=== PATIENT | male | born 1970 | race Caucasian/White ===

== ENCOUNTER 2020-03-25 17:26 | Outpatient (CLI) | payer OTHER, SELFPAY ==
--- NOTE | ~2020-03-25 | XR_ITS ---
EXAMINATION: XR foot RT 2V DATE: 03/25/2020 18:03 INDICATION: Right foot pain and swelling and erythema at the great toe TECHNIQUE: Dorsoplantar and lateral views of the right foot were obtained. COMPARISON: None. FINDINGS: Mild hallux valgus. Alignment is otherwise normal. No fracture. Minimal osteoarthritis at the first m etatarsophalangeal and a few interphalangeal joints. No cortical erosions or periosteal reaction. Sma ll Achilles calcaneal spur. Diffuse mild soft tissue swelling in the forefoot. IMPRESSION: 1. Minimal degenerative skeletal changes. No acute osseous abnormality. Reviewed, dictated and finalized at location A.
[2020-03-25 17:46] LABS: Hematocrit 42.5 % (40.0-54.0); Hemoglobin 14.9 g/dL (14.0-18.0); Mean Corpuscular Volume 86.7 fL (78.0-102.0); White Blood Count 6.9 K/mm3 (4.8-10.8)
[2020-03-25 17:47] LABS: Basophils Absolute Auto 0.04 K/mm3 (0.00-0.10); Basophils Percent Auto 0.6 % (0.0-1.0); Eosinophils Absolute Auto 0.25 K/mm3 (0.02-0.50); Eosinophils Percent Auto 3.6 % (1.0-6.0); Immature Granulocyte Absolute 0.02 K/mm3 (0.00-0.00); Immature Granulocyte Percent A 0.3 % (0.0-0.0); Lymphocytes Absolute Auto 1.69 K/mm3 (1.10-4.50); Lymphocytes Percent Auto 24.4 % (18.0-42.0); Mean Corpuscular HGB Conc 35.1 g/dL (32.0-36.0); Mean Corpuscular Hemoglobin 30.4 pg (27.0-31.0); Mean Platelet Volume 9.6 fl (8.7-11.0); Monocytes Percent Auto 5.8 % (2.0-11.0); Neutrophils Absolute Auto 4.5 K/mm3 (1.7-7.2); Neutrophils Percent Auto 65.3 % (50.0-70.0); Platelet Count Result 207 K/mm3 (150-420); Red Cell Distribution Width 12.8 % (11.6-14.4)
[2020-03-25 19:55] LABS: Alanine Aminotransferase 25 U/L (16-63); Albumin Level 3.9 g/dL (3.4-5.0); Alkaline Phosphatase 87 U/L (46-116); Anion Gap 12.1 mmol/L (7-16); Aspartate Amino Transferase 15 U/L (15-37); Bilirubin,Total 0.5 mg/dL (0.00-1.00); Blood Urea Nitrogen 18 mg/dL (7-18); Calcium 8.5 mg/dL (8.5-10.1); Carbon Dioxide 28 mmol/L (21-32); Chloride 104 mmol/L (98-108); Estimated Glomerular Filt Rate > 60; Glucose 93 mg/dL (70-99); Osmolality Calculated 291 mOsm/kg (285-295); Potassium 4.1 mmol/L (3.5-5.1); Sodium 140 mmol/L (136-145); Total Protein 6.6 g/dL (6.4-8.2); Uric Acid 7.6 mg/dL (3.5-7.2)
== END 2020-03-25 17:27 | disposition home or self-care (01) ==
LOC: CHSLAB 17:30
PROVIDERS: PCP Family Medicine; Visit Provider Family Medicine
DX: M79.676 Pain in unspecified toe(s) (principal); M10.9 Gout, unspecified
CPT/HCPCS: 36415; 73620; 80053; 84550; 85025

== ENCOUNTER 2020-04-01 15:46 | Outpatient (CLI) | payer OTHER, SELFPAY ==
[2020-04-01 16:49] LABS: Uric Acid 4.6 mg/dL (3.5-7.2)
== END 2020-04-01 15:47 | disposition home or self-care (01) ==
PROVIDERS: PCP Family Medicine; Visit Provider Family Medicine
DX: M10.9 Gout, unspecified (principal)
CPT/HCPCS: 36415; 84550

== ENCOUNTER 2020-05-01 07:21 | Outpatient (CLI) | payer OTHER, SELFPAY ==
[2020-05-01 07:35] LABS: Basophils Absolute Auto 0.04 K/mm3 (0.00-0.10); Basophils Percent Auto 0.8 % (0.0-1.0); Eosinophils Absolute Auto 0.14 K/mm3 (0.02-0.50); Eosinophils Percent Auto 2.6 % (1.0-6.0); Hematocrit 44.9 % (40.0-54.0); Hemoglobin 15.2 g/dL (14.0-18.0); Lymphocytes Absolute Auto 1.63 K/mm3 (1.10-4.50); Lymphocytes Percent Auto 30.7 % (18.0-42.0); Mean Corpuscular HGB Conc 33.9 g/dL (32.0-36.0); Mean Corpuscular Hemoglobin 29.9 pg (27.0-31.0); Mean Corpuscular Volume 88.2 fL (78.0-102.0); Mean Platelet Volume 9.7 fl (8.7-11.0); Monocytes Percent Auto 5.6 % (2.0-11.0); Neutrophils Absolute Auto 3.2 K/mm3 (1.7-7.2); Neutrophils Percent Auto 60.3 % (50.0-70.0); Platelet Count Result 165 K/mm3 (150-420); Red Blood Count 5.09 M/mm3 (4.70-6.10); White Blood Count 5.3 K/mm3 (4.8-10.8)
[2020-05-01 08:59] LABS: Alanine Aminotransferase 28 U/L (16-63); Albumin Level 3.8 g/dL (3.4-5.0); Alkaline Phosphatase 82 U/L (46-116); Anion Gap 10.8 mmol/L (7-16); Aspartate Amino Transferase 17 U/L (15-37); Bilirubin,Total 0.7 mg/dL (0.00-1.00); Blood Urea Nitrogen 17 mg/dL (7-18); Calcium 8.9 mg/dL (8.5-10.1); Carbon Dioxide 32 mmol/L (21-32); Chloride 104 mmol/L (98-108); Cholesterol 223 mg/dL (0-200); Estimated Glomerular Filt Rate > 60; Ferritin 55 ng/mL (26-388); Glucose 91 mg/dL (70-99); HDL Direct 60 mg/dL (40-60); Iron 84 ug/dL (65-175); LDL Cholesterol Calculated 150 mg/dL (<130); Osmolality Calculated 297 mOsm/kg (285-295); Percent Iron Saturation 26 % (12-57); Potassium 3.8 mmol/L (3.5-5.1); Sodium 143 mmol/L (136-145); Total Protein 6.5 g/dL (6.4-8.2); Triglycerides 65 mg/dL (0-150); Uric Acid 7.3 mg/dL (3.5-7.2); Vitamin B12 305 pg/mL (193-986)
[2020-05-01 09:01] LABS: Thyroid Stimulating Hormone Reflex 3.39 u/IU/mL (0.36-3.74)
[2020-05-05 19:25] LABS: Vitamin D 25 Hydroxy 16 ng/mL (30-100)
== END 2020-05-01 07:22 | disposition home or self-care (01) ==
LOC: CHSLAB 07:24
PROVIDERS: PCP Family Medicine; Visit Provider Family Medicine
DX: Z00.00 Encounter for general adult medical examination without abnormal findings (principal); Z98.84 Bariatric surgery status; M10.9 Gout, unspecified; E66.01 Morbid (severe) obesity due to excess calories
CPT/HCPCS: 36415; 80053; 80061; 82306; 82607; 82728; 82746; 83540; 83550; 84443; 84550; 85025

== ENCOUNTER 2020-11-04 17:31 | Outpatient (CLI) | payer OTHER, SELFPAY ==
[2020-11-04 17:48] LABS: Basophils Absolute Auto 0.05 K/mm3 (0.00-0.10); Basophils Percent Auto 0.7 % (0.0-1.0); Eosinophils Absolute Auto 0.15 K/mm3 (0.02-0.50); Eosinophils Percent Auto 2.1 % (1.0-6.0); Hemoglobin 17.1 g/dL (14.0-18.0); Immature Granulocyte Absolute 0.02 K/mm3 (0.00-0.00); Immature Granulocyte Percent A 0.3 % (0.0-0.0); Lymphocytes Absolute Auto 1.31 K/mm3 (1.10-4.50); Lymphocytes Percent Auto 17.9 % (18.0-42.0); Mean Corpuscular HGB Conc 35.6 g/dL (32.0-36.0); Mean Corpuscular Hemoglobin 31.7 pg (27.0-31.0); Mean Corpuscular Volume 88.9 fL (78.0-102.0); Mean Platelet Volume 10.3 fl (8.7-11.0); Monocytes Absolute Auto 0.42 K/mm3 (0.10-0.90); Monocytes Percent Auto 5.8 % (2.0-11.0); Neutrophils Absolute Auto 5.4 K/mm3 (1.7-7.2); Neutrophils Percent Auto 73.2 % (50.0-70.0); Platelet Count Result 183 K/mm3 (150-420); Red Cell Distribution Width 13.6 % (11.6-14.4); White Blood Count 7.3 K/mm3 (4.8-10.8)
[2020-11-04 19:06] LABS: Alanine Aminotransferase 47 U/L (16-63); Albumin Level 4.5 g/dL (3.4-5.0); Alkaline Phosphatase 96 U/L (46-116); Anion Gap 12 mmol/L (8-16); Aspartate Amino Transferase 28 U/L (15-37); Bilirubin,Total 0.7 mg/dL (0.00-1.00); Blood Urea Nitrogen 22 mg/dL (7-18); Calcium 9.2 mg/dL (8.5-10.1); Carbon Dioxide 25 mmol/L (21-32); Chloride 102 mmol/L (98-108); Cholesterol 290 mg/dL (0-200); Estimated Glomerular Filt Rate > 60; Ferritin 110 ng/mL (26-388); Folic Acid 7.9 ng/mL (8.6->20); Glucose 85 mg/dL (70-99); HDL Direct 70 mg/dL (40-60); Iron 81 ug/dL (65-175); LDL Cholesterol Calculated 203 mg/dL (<130); Osmolality Calculated 290 mOsm/kg (285-295); Percent Iron Saturation 24 % (12-57); Potassium 4.2 mmol/L (3.5-5.1); Sodium 139 mmol/L (136-145); Total Protein 7.3 g/dL (6.4-8.2); Triglycerides 84 mg/dL (0-150); Uric Acid 5.7 mg/dL (3.5-7.2); Vitamin B12 413 pg/mL (193-986)
[2020-11-04 19:08] LABS: Thyroid Stimulating Hormone Reflex 3.35 u/IU/mL (0.36-3.74)
[2020-11-11 02:45] LABS: Vitamin D 25 Hydroxy 34 ng/mL (30-100)
== END 2020-11-04 17:32 | disposition home or self-care (01) ==
LOC: CHSLAB 17:34
PROVIDERS: PCP Family Medicine; Visit Provider Family Medicine
DX: E55.9 Vitamin D deficiency, unspecified (principal); Z98.84 Bariatric surgery status; M25.50 Pain in unspecified joint; M10.9 Gout, unspecified; R03.0 Elevated blood-pressure reading, without diagnosis of hypertension; E66.01 Morbid (severe) obesity due to excess calories
CPT/HCPCS: 36415; 80053; 80061; 82306; 82607; 82728; 82746; 83540; 83550; 84443; 84550; 85025

== ENCOUNTER 2021-10-27 07:36 | Outpatient (CLI) | payer OTHER, SELFPAY ==
[2021-10-27 07:54] LABS: Hematocrit 47.2 % (40.0-54.0); Hemoglobin 16.6 g/dL (14.0-18.0); Mean Corpuscular HGB Conc 35.2 g/dL (32.0-36.0); Mean Corpuscular Hemoglobin 31.7 pg (27.0-31.0); Mean Corpuscular Volume 90.2 fL (78.0-102.0); Mean Platelet Volume 9.8 fl (8.7-11.0); Platelet Count Result 175 K/mm3 (150-420); Red Blood Count 5.23 M/mm3 (4.70-6.10); White Blood Count 7.6 K/mm3 (4.8-10.8)
[2021-10-27 08:06] LABS: Hemoglobin A1C 5.3 % (<5.7)
[2021-10-27 09:14] LABS: Alanine Aminotransferase 25 U/L (16-63); Alkaline Phosphatase 92 U/L (46-116); Anion Gap 15 mmol/L (8-16); Aspartate Amino Transferase 13 U/L (15-37); Bilirubin,Total 0.7 mg/dL (0.00-1.00); Blood Urea Nitrogen 16 mg/dL (7-18); Calcium 8.6 mg/dL (8.5-10.1); Carbon Dioxide 27 mmol/L (21-32); Chloride 104 mmol/L (98-108); Cholesterol 200 mg/dL (0-200); Estimated Glomerular Filt Rate > 60; Folic Acid 12.6 ng/mL (8.6->20); Glucose 94 mg/dL (70-99); HDL Direct 70 mg/dL (40-60); LDL Cholesterol Calculated 120 mg/dL (<130); Osmolality Calculated 303 mOsm/kg (285-295); Potassium 4.2 mmol/L (3.5-5.1); Sodium 146 mmol/L (136-145); Total Protein 6.6 g/dL (6.4-8.2); Triglycerides 48 mg/dL (0-150); Vitamin B12 290 pg/mL (193-986)
[2021-10-31 02:20] LABS: Vitamin D 25 Hydroxy 28 ng/mL (30-100)
[2021-11-01 19:06] LABS: Vitamin A 47 mcg/dL (38-98)
== END 2021-10-27 07:37 | disposition home or self-care (01) ==
LOC: CHSLAB 07:42
PROVIDERS: PCP Family Medicine; Visit Provider Family Medicine
DX: Z98.84 Bariatric surgery status (principal); E11.9 Type 2 diabetes mellitus without complications; E53.8 Deficiency of other specified B group vitamins
CPT/HCPCS: 36415; 80053; 80061; 82306; 82607; 82746; 83036; 84443; 84590; 85027

== ENCOUNTER 2022-02-20 14:16 | Outpatient (CLI) | payer OTHER, SELFPAY ==
--- NOTE | ~2022-02-20 | XR_ITS ---
EXAMINATION: XR shoulder RT min 2V DATE: 02/20/2022 14:36 INDICATION: Right shoulder pain. TECHNIQUE: 4 views of right shoulder were obtained. COMPARISON: None. FINDINGS: Bone alignment is normal. No fracture. There is mild osteoarthritis of glenohumeral joint a nd moderate osteoarthritis of acromioclavicular joint. IMPRESSION: 1. Polyarticular osteoarthritis. Reviewed, dictated and finalized at location D.
== END 2022-02-20 14:17 | disposition home or self-care (01) ==
PROVIDERS: PCP Family Medicine; Visit Provider Nurse Practitioner Family
DX: M25.511 Pain in right shoulder (principal)
CPT/HCPCS: 73030

== ENCOUNTER 2022-04-11 15:55 | Outpatient (RCR) | payer OTHER, SELFPAY ==
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
== END 2022-05-04 16:58 | disposition home or self-care (01) ==
LOC: CHSPT 15:55
PROVIDERS: PCP Family Medicine; Visit Provider Family Medicine
DX: S46.019A Strain of muscle(s) and tendon(s) of the rotator cuff of unspecified shoulder, initial encounter (principal)
CPT/HCPCS: 97014; 97110; 97140; 97161; G0283

== ENCOUNTER → 2022-05-16 14:23 | Outpatient (CLI) | payer OTHER, SELFPAY ==
--- NOTE | ~2022-05-16 | MR_ITS ---
EXAMINATION: MR shoulder RT wo con DATE: 05/16/2022 15:04 INDICATION: Rotator cuff tear presenting with right shoulder pain and popping TECHNIQUE: Magnetic resonance imaging (MRI) of the right shoulder was performed without intravenous c ontrast. Sequences included axial PD-weighted FS FSE, coronal oblique PD-weighted FS FSE, coronal obl ique T2-weighted FS FSE, sagittal PD-weighted FS FSE, and sagittal T1-weighted SE. COMPARISON: None. FINDINGS: Coracoacromial arch: The acromion undersurface is curved in morphology (type II). The coracoacromial ligament is normal. M ild acromioclavicular osteoarthritis. Rotator cuff: Mild supraspinatus tendinopathy without discrete tear. Moderate infraspinatus tendinopathy with small mild intrasubstance tear located approximately 1 cm from the middle facet footplate. The tear measur es approximately 3 mm AP measures 1 cm medial to lateral and involves no greater than one third of th e tendon thickness. The teres minor tendon is normal. Mild subscapularis tendinopathy. Small partial- thickness tear involving the superolateral quadrant of the lesser tuberosity footplate of the subscap ularis tendon. Normal rotator cuff muscle bulk and signal. Biceps tendon, glenoid labrum and glenohumeral cartilage: Diffuse wall thickening and mild increased signal consistent with mild tendinopathy without discrete tear at the junction of the intra and extra articular portions of the long head biceps tendon. At thi s location the tendon is partially subluxed across the medial margin of the cephalad aspect of the in tertubercular groove at the site of the lesser tuberosity subscapularis tendon tear defect. Glenoid l abrum is normal. Partial-thickness cartilage loss with smooth chondral surface along the cephalad thi rd of the glenoid. Humeral head cartilage is normal. Fluid: Minimal right glenohumeral joint effusion with minimally increased fluid at the axillary recess and d eep subscapular recess. Disproportionate small amount of fluid and mild synovitis along the long head biceps tendon sheath consistent with mild bicipital tenosynovitis. No loose osteochondral bodies. No abnormal increased fluid in the subacromial/subdeltoid bursa to suggest bursitis. Bones: Normal marrow signal with no edema, fracture or abnormal marrow replacing process. Prominent intraoss eous cystic change underlying the central aspect of the middle facet of the greater tuberosity likely related to the infraspinatus tendon disease. IMPRESSION: 1. Moderate infraspinatus tendinopathy with very small mild partial-thickness intrasubstance tear. 2. Mild subscapularis tendinopathy with partial tear involving the superolateral lesser tuberosity fo otplate resulting in partial subluxation of the long head biceps tendon across the cephalad aspect of the medial rim of the intertubercular groove and across the subscapularis tendon tear defect. 3. Mild bicipital tenosynovitis with mild tendinopathy without discrete tear. 4. Mild right glenohumeral and acromioclavicular osteoarthritis. Reviewed, dictated and finalized at location A. IMPRESSION: 1. Moderate infraspinatus tendinopathy with very small mild partial-thickness i ntrasubstance tear. 2. Mild subscapularis tendinopathy with partial tear involving the superolatera l lesser tuberosity footplate resulting in partial subluxation of the long head biceps tendon across the cephalad aspect of the medial rim of the intertubercu lar groove and across the subscapularis tendon tear defect. 3. Mild bicipital tenosynovitis with mild tendinopathy without discrete tear. 4. Mild right glenohumeral and acromioclavicular osteoarthritis.
== END ==
PROVIDERS: PCP Family Medicine; Visit Provider Family Medicine
DX: M75.101 Unspecified rotator cuff tear or rupture of right shoulder, not specified as traumatic (principal); M19.011 Primary osteoarthritis, right shoulder; M65.811 Other synovitis and tenosynovitis, right shoulder
CPT/HCPCS: 73221

== ENCOUNTER 2022-06-07 16:41 | Outpatient (RCR) | payer OTHER, SELFPAY ==
--- NOTE | 2022-06-07 17:12 | PTOPEVAL ---
Thank you for referring Farzad Bruno to [facility].? The patient is scheduled to be seen for therapy? __2__x/week for 12 visits. Please review, sign, date and return this plan of care ALPESH. I agree with and certify that the following plan of care is medically necessary. Referring Physician Date Admitting Provider: Attending Provider: AMANDA MURILLO Referring Provider: *PT Outpatient Evaluation Start: 06/07/22 16:40 Freq: Status: Active Protocol: Document 06/07/22 16:40 RONI (Rec: 06/07/22 17:12 RONI [id number]) Therapy Assessment Status Assessment Status Assessment Status Evaluation Evaluation Information Problem Diagnosis subluxation of tendon of long head of biceps right Onset 02/11/22 Subjective Information Pt. reports that he has had Query Text:As Reported By Patient/ shoulder pain since January. He Family underwent recent cortisone injection which did reduce his pain. He states that he still has pain with overhead reaching and reaching behind his back. He had an MRI which revealed a tear in the rotator cuff and biceps. 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 He reports that his goal is to improve shoulder mobility and decrease pain. Pain Assessment Timing of Pain Assessment Timing of Pain Assessment Pre-Treatment Pain Scale Pain Scale Used Numeric (1 - 10) Self Report Pain Assessment Right Shoulder(s) Reported Pain Level 1 Greatest Pain Intensity 3 Pain Score Pain Score 1: Self Report Interventions Used Interventions Used By Clinicians Electrical Stimulation, Exercise,Heat,Manual Therapy Techniques General Exercise General Exercises Exercise Description -bilateral shoulder retraciton Query Text:Record Sets, Reps, -bilateral shoulder extension Resistance, and Position -bilateral shoulder ER -pec stretch -static scapular retraction Manual Therapy Manual Therapy Side Right Treatment Comments inferior, posterior and Query Text:Include Technique and anterior mobilization combined Result of Technique with passive stretching to promote improved ROM Modalities Electrical Stimulation Right Shoulder Stimulation Type
--- NOTE | 2022-06-07 17:55 | PTOPEVAL ---
Thank you for referring Farzad Bruno to [facility].? The patient is scheduled to be seen for therapy? __2__x/week for 12 visits. Please review, sign, date and return this plan of care ALPESH. I agree with and certify that the following plan of care is medically necessary. Referring Physician Date Admitting Provider: Attending Provider: AMANDA MURILLO Referring Provider: *PT Outpatient Evaluation Start: 06/07/22 16:40 Freq: Status: Active Protocol: Document 06/07/22 16:40 RONI (Rec: 06/07/22 17:12 [email or web address] [email or web address]) Therapy Assessment Status Assessment Status Assessment Status Evaluation Evaluation Information Problem Diagnosis subluxation of tendon of long head of biceps right Onset 02/11/22 Subjective Information Pt. reports that he has had Query Text:As Reported By Patient/ shoulder pain since January. He Family underwent recent cortisone injection which did reduce his pain. He states that he still has pain with overhead reaching and reaching behind his back. He had an MRI which revealed a tear in the rotator cuff and biceps. 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 He reports that his goal is to improve shoulder mobility and decrease pain. Pain Assessment Timing of Pain Assessment Timing of Pain Assessment Pre-Treatment Pain Scale Pain Scale Used Numeric (1 - 10) Self Report Pain Assessment Right Shoulder(s) Reported Pain Level 1 Greatest Pain Intensity 3 Pain Score Pain Score 1: Self Report Interventions Used Interventions Used By Clinicians Electrical Stimulation, Exercise,Heat,Manual Therapy Techniques Upper Extremity Range of Motion General Upper Extremity Range of Motion Gross Upper Extremity Range of Motion -Pt. reaches to the right PSIS Comments with the right u.e. and the lower thoracic region with the left u.e. with combined shoulder IR extension. -right shoulder flexion 155 degrees -left shoulder flexion 165 degrees Upper Extremity Muscle Strength Testing General Upper Extremity Strength Gross Upper Extremity Strength Comments -right shoulder flexion 4/5
== END 2022-07-17 18:00 | disposition home or self-care (01) ==
LOC: CHSPT 16:41
PROVIDERS: PCP Family Medicine
DX: S46.119A Strain of muscle, fascia and tendon of long head of biceps, unspecified arm, initial encounter (principal)
CPT/HCPCS: 97014; 97110; 97140; 97161; G0283

== ENCOUNTER 2022-07-25 10:23 | Outpatient (CLI) | payer OTHER, SELFPAY ==
--- NOTE | ~2022-07-25 | XR_ITS ---
XR knee RT 3V 07/25/2022 10:59 Indication: Right knee pain Procedure: 4 views right knee Comparison: No prior studies for comparison. Findings: No fracture, subluxation or dislocation. No joint effusion. No foreign bodies. There is singh tomic alignment. Impression: 1: No significant bone or joint abnormality. Reviewed, dictated and finalized at location A. Impression: 1: No significant bone or joint abnormality.
== END 2022-07-25 10:24 | disposition home or self-care (01) ==
LOC: CHSIMG 10:25
PROVIDERS: PCP Family Medicine; Visit Provider Family Medicine
DX: M25.561 Pain in right knee (principal)
CPT/HCPCS: 73562

== ENCOUNTER 2022-09-22 07:00 | Outpatient (RCR) | payer OTHER, SELFPAY ==
--- NOTE | 2022-09-21 15:27 | PTOPEVAL1 ---
Assessment and note entered by JT File, PT Evaluation Information Assessment Status Evaluation Diagnosis s/p R shoulder arthroscopy Onset 09/05/22 Subjective Information patient reports he tore his RTC of the R shoulder on 02/11/22. he reports the RTC had several small tears in it, and the biceps long head tendon was torn and displaced. he reports he tried therapy on the R shoulder for conservative treatment, but ultimately settled on having surgery on the R arm after an injury after surgery. he reports he had a clean out of the inflamation of the RTC and a surgical tenodesis of the R biceps long head. he reports he is to wean out of the R arm sling by . he has no ROM restrictions, but has no strengthening currently per the post op precautions. he reports he continues to have limited mobility in the shoulder with pain at the joint. Reported Pain Level Pain Score 2: Self Report Assessment PT Clinical Summary mr. fang presents to skilled PT services for evaluation and treatment following R arthroscopic and mini open shoulder surgery. he is currently limited to no strengthening exercises, but is able to wean from shoulder sling, and work on return to full rom. he would do well to attend skilled PT to improve his objective/functional deficits and return to his prior level functional activity performance/quality of life. Plan of Care Interventions Electrical Stimulation,Hot Pack/Cold Pack,Manual Therapy,Neuro Re-education,Patient/Caregiver Educati,Therapeutic Activities,Therapeutic Exercise PT Services Indicated Yes Treatment Frequency and 2x weekly for 12 visits Duration These treatments will address the objective and functional deficits as defined above. The patient will be advanced safely and appropriately in order for the patient to progress towards his/her prior level of function. Additional exercises will be introduced and as well as a comprehensive home exercise program upon discharge, if needed, ?to ensure carryover of functional gains achieved in the clinic. This treatment plan has been reviewed and agreement upon by the patient.
[2022-10-19 07:05] VITALS: BP_SYST 110
--- NOTE | 2022-10-19 08:26 | PTOPPROG ---
Assessment and note entered by Jackelin Webb, PT Evaluation Information Assessment Status Progress Diagnosis s/p R shoulder arthroscopy Onset 09/05/22 Subjective Information Farzad reports his right shoulder is doing well overall but he still notes pain with lifting his right arm overhead and when he is carrying something at his side. He notes the pain is only 4 /10 at highest. He does feel weakness in his right arm. Assessment PT Clinical Summary Farzad Bruno is 6 weeks s/p right shoulder arthroscopy and open biceps tenodesis. He is reporting less pain and improved mobility in the right shoulder but he still has pain with lifting his right arm overhead and carrying items at his side. He has not started strengthening for the right shoulder and feels like his arm is weak. He objectively demonstrates improved right shoulder active and passive ROM. He continues to have deficits in right shoulder AROM, posture, and right shoulder strength. He will continue to benefit from skilled PT to progress to strengthening, further improve AROM, and improve functional abilities. Plan of Care Interventions Electrical Stimulation,Hot Pack/Cold Pack,Manual Therapy,Patient/Caregiver Educati,Therapeutic Activities,Therapeutic Exercise PT Services Indicated Yes Treatment Frequency and 2 times a week for 12 visits Duration These treatments will address the objective and functional deficits as defined above. The patient will be advanced safely and appropriately in order for the patient to progress towards his/her prior level of function. Additional exercises will be introduced and as well as a comprehensive home exercise program upon discharge, if needed, ?to ensure carryover of functional gains achieved in the clinic. This treatment plan has been reviewed and agreement upon by the patient.
--- NOTE | 2022-12-06 07:52 | PTOPDC ---
Assessment and note entered by JT File, PT Evaluation Information Assessment Status Discharge Diagnosis s/p R shoulder arthroscopy Onset 09/05/22 Subjective Information patient reports he feels Good this date. he reports no pain at rest, and minimal pain at worst in the last week. he reports he has been doing low doorway stretches and light exercises at home. Reported Pain Level Pain Score 0: Self Report Assessment PT Clinical Summary mr. fang has made progress towards all goals, and met goals for functional R UE use, R elbow strength, and passive shoulder flexion. as of this date, he would do well to DC skilled PT and continue with HEP at home. he was given and updated HEP to continue to improve his strength and rom of the R UE. Plan of Care Treatment Frequency and DC to independent HEP Duration
== END 2022-12-06 09:10 | disposition home or self-care (01) ==
LOC: CHSPT 07:00
DX: S46.011D Strain of muscle(s) and tendon(s) of the rotator cuff of right shoulder, subsequent encounter (principal)
CPT/HCPCS: 97014; 97110; 97140; 97161; G0283

== ENCOUNTER 2022-11-03 14:44 | Outpatient (CLI) | payer OTHER, SELFPAY ==
[2022-11-03 15:01] LABS: Hematocrit 43.7 % (40.0-54.0); Hemoglobin 15.3 g/dL (14.0-18.0); Mean Corpuscular Hemoglobin 31.4 pg (27.0-31.0); Mean Corpuscular Volume 89.7 fL (78.0-102.0); Mean Platelet Volume 9.9 fl (8.7-11.0); Platelet Count Result 196 K/mm3 (150-420); Red Blood Count 4.87 M/mm3 (4.70-6.10); Red Cell Distribution Width 13.2 % (11.6-14.4); White Blood Count 8.8 K/mm3 (4.8-10.8)
[2022-11-03 16:00] LABS: Alanine Aminotransferase 25 U/L (16-63); Alkaline Phosphatase 107 U/L (46-116); Anion Gap 7 mmol/L (8-16); Aspartate Amino Transferase 14 U/L (15-37); Bilirubin,Total 0.5 mg/dL (0.00-1.00); Blood Urea Nitrogen 25 mg/dL (7-18); Calcium 8.1 mg/dL (8.5-10.1); Carbon Dioxide 28 mmol/L (21-32); Chloride 103 mmol/L (98-108); Cholesterol 145 mg/dL (0-200); Estimated Glomerular Filt Rate > 60; Folic Acid > 20.0 ng/mL (8.6->20); Glucose 163 mg/dL (70-99); HDL Direct 46 mg/dL (40-60); LDL Cholesterol Calculated 80 mg/dL (<130); Osmolality Calculated 294 mOsm/kg (285-295); Potassium 3.7 mmol/L (3.5-5.1); Sodium 138 mmol/L (136-145); Thyroid Stimulating Hormone 1.33 uIU/mL (0.36-3.74); Total Protein 6.5 g/dL (6.4-8.2); Triglycerides 96 mg/dL (0-150); Vitamin B12 429 pg/mL (193-986)
[2022-11-07 09:24] LABS: Vitamin D 25 Hydroxy 41 ng/mL (30-100)
[2022-11-08 12:56] LABS: Vitamin A 45 mcg/dL (38-98)
== END 2022-11-03 14:45 | disposition home or self-care (01) ==
LOC: CHSLAB 14:45
PROVIDERS: PCP Family Medicine; Visit Provider Family Medicine
DX: R79.89 Other specified abnormal findings of blood chemistry (principal); E78.5 Hyperlipidemia, unspecified; Z98.84 Bariatric surgery status
CPT/HCPCS: 36415; 80053; 80061; 82306; 82607; 82746; 84443; 84590; 85027

== ENCOUNTER 2023-09-09 09:17 | Emergency (ER) | payer OTHER, SELFPAY ==
--- NOTE | 2023-09-09 09:24 | ED.URI ---
HPI - URI/Sore Throat General Chief Complaint: Upper Respiratory Infection Stated Complaint: Coughing/throat/headache Time Seen by Provider: 09/09/23 09:54 Source: patient and RN notes reviewed Mode of arrival: ambulatory Limitations: no limitations History of Present Illness HPI Narrative: 52-year-old male presents with concern for 4 day history of sore throat, cough, nasal drainage. Reports clear drainage. Denies fever, aches, chills, sweats. Reports he is using a nasal decongestant tablet which helps his symptoms. MD elicited complaint: cough and sore throat Related Data Home Medications Medication Instructions Recorded Confirmed cholecalciferol (vitamin D3) 100 5,000 unit PO DAILY 11/04/20 09/09/23 mcg (4,000 unit) capsule vitamin B complex (B 1 tablet PO DAILY 02/20/22 09/09/23 Complex-Vitamin B12 tablet) melatonin 10 mg tablet 30 mg PO QHS 07/25/22 09/09/23 Allergies Allergy/AdvReac Type Severity Reaction Status Date / Time Penicillins Allergy Intermediate Unknown Verified 09/09/23 09:47 amoxicillin Allergy Unknown Verified 09/09/23 09:47 Review of Systems Review of Systems: CONSTITUTIONAL: Denies malaise, chills, sweats, or fever. EYES: Denies visual changes, redness, or discharge. ENT: Reports rhinorrhea, congestion, and sore throat. CARDIOVASCULAR: Denies chest pain, palpitations, or edema. RESPIRATORY: Reports cough. Denies dyspnea. GASTROINTESTINAL: Denies abdominal pain, nausea, vomiting, diarrhea SKIN: Denies rash or itching. MUSCULOSKELETAL: Denies myalgia. NEUROLOGIC: Denies headache. All systems reviewed & are unremarkable except as noted in HPI and below PMFSH Past Medical History Medical History Gout Hyperlipidemia Low vitamin D level Morbid obesity with body mass index (BMI) of 40.0 to 49.9 Right knee pain Surgical History Surgical History Bariatric surgery status H/O gastric bypass History of bariatric surgery Family History Family History Mother Family history of diabetes mellitus in first degree relative Family history of lung disease Family history of heart disease in male family member before age 55 Father Family history of lung disease Family history of heart disease in male family member before age 55 Other Diabetes mellitus Family history of allergic disorder Social History Social History Smoking status: Never smoker Alcohol intake: current Comments At time of signature, agree with nursing past medical, surgical, social and family history. There is no relevant family history pertinent to the presenting complaint Exam Narrative: GENERAL: Well-appearing, well-nourished, and in no acute distress. HEAD: Normocephalic EYES: PERRLA, conjunctivae clear ENT: Nares clear, turbinates edematous and erythematous, clear discharge. Mucous membranes moist. TM pearly gannon with sharp light reflex bilaterally; no tragal tenderness. Oropharynx not erythematous without lesions. Tonsils not enlarged and without exudate, no drooling, no hoarseness, no trismus, uvula midline. NECK: Supple. No lymphadenopathy CHEST: Clear to auscultation, breath sounds equal. No wheezing, rhonchi, rales, or stridor. No respiratory distress, speaks in full sentences. HEART: Regular rate and rhythm. No murmur heard. SKIN: Warm, dry, no rash. NEURO: Alert and oriented x3. PSYCH: Normal mood and affect Course Course Emergency Course: Patient is aware of diagnosis, understands and agrees to treatment plan. Anticipatory guidance given. Patient agrees to follow-up as directed and is aware of reasons to seek care at the emergency department. Portions of this record may have been created with voice recognition software Level of Care: Express Care Visit Vital Signs Vital sig
[2023-09-09 09:32] VITALS: BP 137/96; PULSE 96; RESP 20; TEMP 36.8; O2SAT 96
[2023-09-09 09:48] VITALS: BP 137/96; PULSE 96; RESP 20; TEMP 36.8; O2SAT 96
== END 2023-09-09 10:26 | disposition home or self-care (01) ==
PROVIDERS: Emergency Provider Nurse Practitioner; PCP Family Medicine
DX: J01.90 Acute sinusitis, unspecified (principal); Z20.822 Contact with and (suspected) exposure to COVID-19; M10.9 Gout, unspecified; E78.5 Hyperlipidemia, unspecified; E66.01 Morbid (severe) obesity due to excess calories; Z68.41 Body mass index [BMI] 40.0-44.9, adult; E55.9 Vitamin D deficiency, unspecified; Z98.84 Bariatric surgery status
CPT/HCPCS: 87081; 87426; 87804; 87880; 99213; C9803; G0463

== ENCOUNTER 2023-10-19 15:33 | Emergency (ER) | payer OTHER, SELFPAY ==
[2023-10-19 15:43] VITALS: BP 146/100; PULSE 98; RESP 16; TEMP 37.3; O2SAT 98
--- NOTE | 2023-10-19 16:20 | ED.URI ---
HPI - URI/Sore Throat General Chief Complaint: Upper Respiratory Infection Stated Complaint: sinus issues Time Seen by Provider: 10/19/23 16:21 Source: patient and RN notes reviewed Mode of arrival: ambulatory Limitations: no limitations History of Present Illness HPI Narrative: 52-year-old male presents with concern for 2 day history of sinus pressure. Reports this started to be painful today. Reports on the left side. He reports clear drainage. He reports trying Sudafed and nasal spray without relief. He denies fever, body aches, chills, sweats. MD elicited complaint: nasal congestion Related Data Home Medications Medication Instructions Recorded Confirmed cholecalciferol (vitamin D3) 100 5,000 unit PO DAILY 11/04/20 09/09/23 mcg (4,000 unit) capsule vitamin B complex (B 1 tablet PO DAILY 02/20/22 09/09/23 Complex-Vitamin B12 tablet) melatonin 10 mg tablet 30 mg PO QHS 07/25/22 09/09/23 Allergies Allergy/AdvReac Type Severity Reaction Status Date / Time Penicillins Allergy Intermediate Unknown Verified 09/09/23 09:47 amoxicillin Allergy Unknown Verified 09/09/23 09:47 Review of Systems Review of Systems: CONSTITUTIONAL: Denies malaise, chills, sweats, or fever. EYES: Denies visual changes, redness, or discharge. ENT: Reports rhinorrhea, congestion, sinus pain, ear fullness CARDIOVASCULAR: Denies chest pain, palpitations, or edema. RESPIRATORY: Reports cough. Denies dyspnea. GASTROINTESTINAL: Denies abdominal pain, nausea, vomiting, diarrhea SKIN: Denies rash or itching. MUSCULOSKELETAL: Denies myalgia. NEUROLOGIC: Denies headache. All systems reviewed & are unremarkable except as noted in HPI and below PMFSH Past Medical History Medical History Gout Hyperlipidemia Low vitamin D level Morbid obesity with body mass index (BMI) of 40.0 to 49.9 Right knee pain Surgical History Surgical History Bariatric surgery status H/O gastric bypass History of bariatric surgery Family History Family History Mother Family history of diabetes mellitus in first degree relative Family history of lung disease Family history of heart disease in male family member before age 55 Father Family history of lung disease Family history of heart disease in male family member before age 55 Other Diabetes mellitus Family history of allergic disorder Social History Social History Smoking status: Never smoker Alcohol intake: current Comments At time of signature, agree with nursing past medical, surgical, social and family history. There is no relevant family history pertinent to the presenting complaint Exam Narrative: GENERAL: Well-appearing, well-nourished, and in no acute distress. HEAD: Normocephalic EYES: PERRLA, conjunctivae clear ENT: Nares clear, turbinates edematous and erythematous, clear discharge. Mucous membranes moist. TM pearly gannon with dull light reflex bilaterally; no tragal tenderness. Oropharynx not erythematous without lesions. Tonsils not enlarged and without exudate, no drooling, no hoarseness, no trismus, uvula midline. NECK: Supple. No lymphadenopathy CHEST: Clear to auscultation, breath sounds equal. No wheezing, rhonchi, rales, or stridor. No respiratory distress, speaks in full sentences. HEART: Regular rate and rhythm. No murmur heard. SKIN: Warm, dry, no rash. NEURO: Alert and oriented x3. PSYCH: Normal mood and affect Course Course Emergency Course: Patient is aware of diagnosis, understands and agrees to treatment plan. Anticipatory guidance given. Patient agrees to follow-up as directed and is aware of reasons to seek care at the emergency department. Portions of this record may have been created with voice recognition software Level of Care: Expre
== END 2023-10-19 16:38 | disposition home or self-care (01) ==
PROVIDERS: Emergency Provider Nurse Practitioner; PCP Family Medicine
DX: J06.9 Acute upper respiratory infection, unspecified (principal); M10.9 Gout, unspecified; E78.5 Hyperlipidemia, unspecified; E66.01 Morbid (severe) obesity due to excess calories; Z68.41 Body mass index [BMI] 40.0-44.9, adult; Z98.84 Bariatric surgery status; E55.9 Vitamin D deficiency, unspecified
CPT/HCPCS: 99213; G0463

== ENCOUNTER 2023-10-25 07:36 | Outpatient (CLI) | payer OTHER, SELFPAY ==
[2023-10-25 07:58] LABS: Hematocrit 47.5 % (40.0-54.0); Hemoglobin 16.2 g/dL (14.0-18.0); Mean Corpuscular HGB Conc 34.1 g/dL (32.0-36.0); Mean Corpuscular Hemoglobin 30.6 pg (27.0-31.0); Mean Corpuscular Volume 89.8 fL (78.0-102.0); Mean Platelet Volume 9.2 fl (8.7-11.0); Platelet Count Result 215 K/mm3 (150-420); Red Blood Count 5.29 M/mm3 (4.70-6.10); Red Cell Distribution Width 12.8 % (11.6-14.4); White Blood Count 8.7 K/mm3 (4.8-10.8)
[2023-10-25 09:15] LABS: Alanine Aminotransferase 40 U/L (16-63); Alkaline Phosphatase 85 U/L (46-116); Anion Gap 7 mmol/L (8-16); Aspartate Amino Transferase 17 U/L (15-37); Bilirubin,Total 0.6 mg/dL (0.00-1.00); Blood Urea Nitrogen 24 mg/dL (7-18); Calcium 9.2 mg/dL (8.5-10.1); Carbon Dioxide 34 mmol/L (21-32); Chloride 101 mmol/L (98-108); Cholesterol 201 mg/dL (0-200); Estimated Glomerular Filt Rate > 60; Folic Acid 18.8 ng/mL (8.6->20); Glucose 97 mg/dL (70-99); HDL Direct 72 mg/dL (40-60); LDL Cholesterol Calculated 116 mg/dL (<130); Osmolality Calculated 298 mOsm/kg (285-295); Sodium 142 mmol/L (136-145); Thyroid Stimulating Hormone 2.85 uIU/mL (0.36-3.74); Total Protein 6.8 g/dL (6.4-8.2); Triglycerides 64 mg/dL (0-150); Vitamin B12 332 pg/mL (193-986)
[2023-10-28 16:10] LABS: Vitamin D 25 Hydroxy 35 ng/mL (30-100)
[2023-10-30 03:01] LABS: Vitamin A 57 mcg/dL (38-98)
== END 2023-10-25 07:37 | disposition home or self-care (01) ==
LOC: CHSLAB 07:39
PROVIDERS: PCP Family Medicine; Visit Provider Family Medicine
DX: E78.5 Hyperlipidemia, unspecified (principal); Z98.84 Bariatric surgery status
CPT/HCPCS: 36415; 80053; 80061; 82306; 82607; 82746; 84443; 84590; 85027

== ENCOUNTER 2023-11-10 09:43 | Outpatient (CLI) | payer OTHER, SELFPAY ==
--- NOTE | ~2023-11-10 | MR_ITS ---
EXAMINATION: MR brain IAC wo/w con DATE: 11/10/2023 11:35 INDICATION: Chronic right ear tinnitus TECHNIQUE: Magnetic resonance imaging (MRI) of the brain and brainstem was performed without and with 20 mL Multihance intravenous contrast. Sequences included sagittal and axial T1-weighted FSE, axial diffusion-weighted FS EPI, axial T2*-weighted GRE, axial T2-weighted FLAIR, axial T2-weighted, axial MPRAGE, small qyiyy-nm-czen coronal FIESTA, small mhtcw-ur-exdm coronal T1-weighted FSE, and small fi eld-of-view axial T1-weighted SPGR. Postcontrast sequences included axial T1-weighted FSE, small fiel d-of-view coronal T1-weighted FSE, and axial MPRAGE. Apparent diffusion coefficient (ADC) maps were c reated. COMPARISON: None. FINDINGS: There are no areas of restricted diffusion to suggest acute infarction. No intracranial hemorrhage or abnormal intracranial mass lesion. There are couple small foci of nonspecific increased T2-weighted signal intensity in the left frontal and right parieto-occipital cerebral white matter which is withi n normal limits for age and likely sequela of chronic small vessel ischemic disease. There are no int raparenchymal signal abnormalities seen on the other pulse sequences. The ventricles are symmetric an d normal in size. There are no abnormal extra-axial fluid collections. Flow voids are seen in the cer ebral arteries on the T2-weighted sequences consistent with their expected patency. Normal seventh/ei ghth cranial nerve complexes. No cerebellopontine angles masses. No evidence of mastoid or middle ear fluid. Mucosal thickening and small amount of dependently layering fluid in the left maxillary sinus. Visualized orbits and soft tissues are unremarkable. There are no areas of abnormal enhancement on the post contrast images. IMPRESSION: 1. A couple small foci of nonspecific cerebral white matter T2 hyperintensity which is within normal limits for age and likely sequela of chronic small vessel ischemic disease. 2. Left maxillary sinus disease including small amount of posterior layering fluid. Correlate clinica lly for acute sinusitis. 3. Otherwise unremarkable MRI of the brain and internal auditory canals with no acute intracranial pr ocess or abnormally enhancing lesions identified. Reviewed, dictated and finalized at location A. UNICATIONS DEPARTMENT CHAIR IMPRESSION: 1. A couple small foci of nonspecific cerebral white matter T2 hyperintensity w hich is within normal limits for age and likely sequela of chronic small vessel ischemic disease. 2. Left maxillary sinus disease including small amount of posterior layering fl uid. Correlate clinically for acute sinusitis. 3. Otherwise unremarkable MRI of the brain and internal auditory canals with no acute intracranial process or abnormally enhancing lesions identified.
== END 2023-11-10 09:44 | disposition home or self-care (01) ==
LOC: CHSIMG 09:44
PROVIDERS: PCP Family Medicine; Visit Provider Family Medicine
DX: H93.11 Tinnitus, right ear (principal); R90.82 White matter disease, unspecified; J32.0 Chronic maxillary sinusitis
CPT/HCPCS: 70553; A9577

== ENCOUNTER 2023-11-23 07:42 | Outpatient (CLI) | payer OTHER, SELFPAY | END 2023-11-23 07:43 | disposition home or self-care (01) | LOC: ANHAUDASC 07:46 | PROVIDERS: PCP Family Medicine; Visit Provider Family Medicine | DX: H93.11 Tinnitus, right ear (principal) | CPT/HCPCS: 92557; 92567 ==

== ENCOUNTER 2024-09-26 10:48 | Outpatient (CLI) | payer OTHER, SELFPAY ==
--- NOTE | ~2024-09-26 | XR_ITS ---
Right foot Technique: AP, oblique, and lateral views were obtained. Clinical History: Pain Findings: No acute fracture or dislocation is seen. Osseous alignment is anatomic. Joint spaces are p reserved without erosive or degenerative change. Soft tissues are unremarkable. Impression: Unremarkable right foot radiographs. Reviewed, dictated and finalized at location . ACE ATTENDANT Impression: Unremarkable right foot radiographs.
== END 2024-09-26 10:49 | disposition home or self-care (01) ==
PROVIDERS: PCP Family Medicine; Visit Provider Family Medicine
DX: E66.01 Morbid (severe) obesity due to excess calories (principal); M79.671 Pain in right foot
CPT/HCPCS: 73630

== ENCOUNTER 2024-11-15 06:51 | Outpatient (CLI) | payer OTHER, SELFPAY ==
--- OUTSIDE RECORDS SUMMARY | 2024-11-15 06:55 | XMS_ITS | Clinical Summary ---
Author Organization [facility] Address [address] [place] [address]. [place] [address] [place] [address] Care Team Providers Care Marine Geologist Name Role Phone Unavailable Primary Care Provider Unavailabl e Social History Tobacco Use Types Packs/Day Years Used Date Smoking Tobacco: Never Assessed Sex and Gender Information Value Date Recorded Sex Assigned at Not on file Legal Sex Male 9:57 AM CDT Gender Identity Not on file Sexual Orientation Not on file Plan of Treatment Health Maintenance Due Date Last Done Comments Colorectal Cancer Screening Colonoscopy (10 Years) 1971 Annual Physical 1974 Hepatitis C 1989 DTaP, Tdap and Td Vaccines ( 1 - Tdap) 1990 Hepatitis B Vaccines (1 of 3 - 19+ 3-dose series) 1990 Zoster Vaccines (1 of 2) 2021 COVID-19 Vaccine (2023-2 5 season) 2024 Influenza Adult (#1) 2024 Meningococcal Vaccine Aged Out No neetu jordan eligible based on patient's age to complete this topic Pneumococcal Vaccine: Pediat rics (0 to 5 Years) and At-Risk Patients (6 to 64 Years) Aged Out No longer eligible b ased on patient's age to complete this topic RSV Immunizations Under 20 Months Aged Out No longer eligible based on patient's age to complete this topic
--- OUTSIDE RECORDS SUMMARY | 2024-11-15 06:55 | XMS_ITS | Referral Summary ---
Author Organization [facility] Address [address] [place] [address] Care Team Providers Care Astronomy Department Chair Name Role Phone Charo Kenneth Serranoh Primary Care Provider Encounters Date Type Department Care Team Description 09/18/2024 1:07 PM DIRECT SUPPORT STAFF MEMBER - 09/18/2024 2:19 PM DIRECT SUPPORT STAFF MEMBER Emergency [facility] Emergency Department [address] [place] [address] Laceration of left index finger without foreign body with damage to nail, initial encounter (Primary Dx) Discharge Disposition: Discharge to home or self care from Last 3 Months Allergies Active Allergy Reactions Criticality Noted Date Comments Penicillins Rash Medium As an Adult Medications acetaminophen (TYLENOL) 500 mg tablet Take 500 mg by mouth every 4 (four) hours as needed 0 Active allopurinoL (ZYLOPRIM) 300 mg tabletIndicatio ns:prevention of acute gout attack Take 1 tablet (300 mg total) by mouth nightly 2 Active atorvastatin (LIPITOR) 40 mg tabletIndicatio ns:hyperlipidem ia Take 1 tablet (40 mg total) by mouth nightly 2 Active cyanocobalamin (Vitamin B-12) 1,000 mcg tabletIndicatio ns:Prevention of Vitamin B12 Deficiency Take 1,000 mcg by mouth nightly Active cholecalciferol 25 mcg (1,000 unit) tabletIndicatio ns:for supplement Take 1,000 Units by mouth nightly Active multivitamin capsuleIndicati ons:Vitamin Deficiency Prevention Take 1 capsule by mouth nightly Active melatonin solution 1 mg/mLIndication s:supplement for sleep Take 30 mL (30 mg total) by mouth nightly Active omeprazole (PriLOSEC) 10 mg capsule Take 1 capsule (10 mg total) by mouth daily Active docusate sodium (COLACE) 100 mg capsuleIndicati ons:constipatio n Take 1 capsule (100 mg total) by mouth 2 (two) times a day as needed for constipation (while taking narcotics) 30 capsule 1 2 Active oxyCODONE (ROXICODONE) 5 mg immediate release tabletIndicatio ns:Pain 1-2 tablets q4-6 hours PRN pain 40 tablet 2 Active naproxen (NAPROSYN) 500 mg tablet Take 1 tablet (500 mg total) by mouth 2 (two) times a day with meals 30 tablet 4 Active HYDROcodone-joni taminophen (NORCO) 5-325 mg per tabletIndicatio ns:Pain Take 1 tablet by mouth every 6 (six) hours as needed for pain for up to 8 doses 8 tablet 4 Active Active Problems Problem Noted Date Diagnosed Date Tendinopathy of right rotator cuff 08/01/2022 Overview (08/01/2022): Added automatically from request for surgery [id number] Traumatic incomplete tear of right rotator cuff 08/01/2022 Overview (08/01/2022): Added automatically from request for surgery [id number] Subluxation of tendon of long head of biceps 08/2022 Overview (08/01/2022): Added automatically from request for surgery [id number] Abdominal pannus 11/10/2019 Weight loss 12/09/2018 Meralgia paresthetica 07/20/2016 Morbid obesity 07/19/2016 Obstructive sleep apnea syndrome 07/19/2016 Immunizations Name Administration Dates Next Due Tdap 09/18/2024() Social History Tobacco Use Types Packs/Day Years Used Date Smoking Tobacco: Former Cigarettes 0.5 20 0 05/22/1993 - 10/22/2011 Smokeless Tobacco: Never Tobacco Cessation:Counseling Given: Not Answered Comments:Already quit AUDIT-C Answer Date Recorded Q1: How often do you have a drink containing alc ohol? 2-3 times a week 09/05/2022 Q2: How many drinks containi ng alcohol do you have on a typical day when you are drinking? 3 or 4 09/05/2022 Q3: How often do you have si x or more drinks on one occasion? Less than monthly 09/05/2022 Personal Safety Answer Date Recorded Have you ever been in or are you currently in a harmful physical or emotional relationship or is someone making you feel afraid or unsafe? Denies 09/18/2024 Sex and Gender Information Value Date Recorded Sex Assigned at Not on file Legal Sex Male 11:24 PM DIRECT SUPPORT STAFF MEMBER Gender Identity Male 05/22/2022 8:52 AM CDT Sexual Orientation Straight 05/22/2022 8: 52 AM CDT Last Filed Vital Signs Vital Sign Reading Time Taken Comments Blood Pressure 145/82 09/18/2024 2:18 PM DIRECT SUPPORT STAFF MEMBER Pulse 84 09/18/2024 2:18 PM DIRECT SUPPORT STAFF MEMBER Temperature 36.7 ??C (98 ??F) 09/18/2024 1:10 PM DIRECT SUPPORT STAFF MEMBER Respiratory Rate 20 09/18/2024 2:18 PM DIRECT SUPPORT STAFF MEMBER Oxygen Saturation 98% 09/18/2024 2:18 PM DIRECT SUPPORT STAFF MEMBER Inhaled Oxygen Concentration - - Weight 127 kg (280 lb) 09/18/2024 1:10 PM DIRECT SUPPORT STAFF MEMBER Height 172.7 cm (5' 8 ) 09/05/2022 5:50 AM DIRECT SUPPORT STAFF MEMBER Body Mass Index 42.57 09/05/2022 5:50 AM DIRECT SUPPORT STAFF MEMBER Plan of Treatment Not on file Medical Devices Implanted Type Area Durable Medical Equipment Repairer Device Identifier Shelf Expiration Date Model / Serial / Lot [employer] Set Implant Ar[employer]rex Fibertak Biceps Sterile Latex Free Ar-3670 - [id number] Implanted:Qty: 1 on 09/05/2022 by Derrek Carlos MD at [facility] Right: Shoulder [employer] 03/21/2027 AR-3670 / / [id number] Description:[employer] SET IMPLANT AR[employer]REX FIBERTAK BICEPS STERILE LATEX FREE AR-3670 - [id number] Procedures Procedure Name Priority Date/Time Associated Diagnosis Comments XR FINGER 2ND INDEX LEFT ED 09/18/2024 1:28 PM DIRECT SUPPORT STAFF MEMBER from Last 3 Months Results * XR Finger 2Nd Index Left (09/18/2024 1:28 PM DIRECT SUPPORT STAFF MEMBER) Anatomical Region Laterality Modality Upper Extremities, Hand, Fingers Left Computed Radiography 09/18/2024 2:03 PM DIRECT SUPPORT STAFF MEMBER Narrative 09/18/2024 2:04 PM DIRECT SUPPORT STAFF MEMBER EXAM DESCRIPTION: XR FINGER 2ND INDEX LEFT REASON FOR STUDY: wound ?? laceration to L index finger ? TECHNIQUE: Three views of the index finger. COMPARISON: None. FINDINGS: There is an area of soft tissue laceration of the tip of the second distal finger. ??This extends to the tuft but does not appear to involve the bone. ??No fracture or dislocation is seen. ??No retained radiopaque foreign body. IMPRESSION: Soft tissue laceration of the tip of the second distal finger. No evidence of fracture or retained radiopaque foreign body. THIS IS AN ELECTRONICALLY VERIFIED FINAL REPORT 09/18/2024 2:04 PM - Electronically signed by ??Arcenio Howard M.D. CH: D: ??09/18/2024 2:04 PM T: ??09/18/2024 2:04 PM Report ID: [id number] Reading Location: ??[id number] Procedure Note Arcenio Howard Jr., MD - 09/18/2024 EXAM DESCRIPTION: XR FINGER 2ND INDEX LEFT REASON FOR STUDY: wound laceration to L index finger TECHNIQUE: Three views of the index finger. COMPARISON: None. FINDINGS: There is an area of soft tissue laceration of the tip of the second distal finger. This extends to the tuft but does not appear to involve the bone.No fracture or dislocation is seen. No retained radiopaque foreign body. IMPRESSION: Soft tissue laceration of the tip of the second distal finger. No evidence of fracture or retained radiopaque foreign body. THIS IS AN ELECTRONICALLY VERIFIED FINAL REPORT 09/18/2024 2:04 PM - Electronically signed by Arcenio Howard M.D. CH: Report ID: [id number] Reading Location: [id number] [facility] XR PROCEDURES Final Result from Last 3 Months Insurance CHOICE PLUS CHOICE PLUS Care Teams Astronomy Department Chair Relationship Specialty Start Date End Date Kenneth Mancilla DO [address] [place] [address] PCP - General Family Medicine 05/18/22
--- OUTSIDE RECORDS SUMMARY | 2024-11-15 06:55 | XMS_ITS | Clinical Summary ---
Author Organization [facility] Address [address] [place] [address] Care Team Providers Care Entry Level Web Developer Name Role Phone Henrry Multani MD Primary Care Provider [phone] Source Comments [facility],non-owned Affiliates and Associated Physician Practices is amultiple site organization consisting of ambulatory clinics and hospital sitesin [place], [place], [place] and [place]. This disclosure is being madepursuant to the Care Everywhere program and may not contain all information available regarding this patient. Last updated 18.[facility] Allergies Active Allergy Reactions Criticality Noted Date Comments Amoxicillin Urticaria High 12/09/2018 Penicillins Urticaria High 12/09/2018 Medications * Be aware that medications may not be up to date on this document. Alwaysverify current medications with the patient. Medication Sig Dispensed Refills Start Date End Date Status Cyanocobalamin (NASCOBAL) 500 MCG/0.1ML [place] into the nose every 7 days Active omeprazole (PRILOSEC) 20 MG capsule Take 20 mg by mouth daily before breakfast Active acetaminophen (TYLENOL) 500 MG tablet Take 1 tablet by mouth every 4 hours as needed for Fever or Pain Maximum allowable Acetaminophen amount = 4 Grams (4000 mg) / 24 hours. 30 tablet 12/18/2019 Active oxyCODONE, immediate release, (ROXICODONE) 5 MG tablet Take 1 tablet by mouth every 2 hours as needed for Pain 30 tablet 12/18/2019 Active Additional Information Patient not taking.Reported on 01/16/2020 docusate sodium (COLACE) 100 MG capsule Take 1 capsule by mouth once daily as needed for Constipation 20 capsule 12/18/2019 Active Additional Information Patient not taking.Reported on 01/16/2020 enoxaparin (LOVENOX) injection INJ 40 MG SC IN YOUR THIGH ONLY D FOR 5 DAYS 12/19/2019 Active Active Problems Problem Noted Date Diagnosed Date S/P abdominoplasty 01/05/2020 Post-operative state 12/18/2019 Abdominal pannus 11/10/2019 Weight loss 12/09/2018 Resolved Problems Problem Noted Date Diagnosed Date Resolved Date Hemorrhage 12/18/2019 01/05/2020 Rash 12/09/2018 01/06/2019 Family History Medical History Relation Name Comments CAD (Coronary Artery Disease) Father CVA Father CVA Mother Cancer - Other Mother Hypertension Mother Relation Name Status Comments Father Mother Social History Tobacco Use Types Packs/Day Years Used Date Smoking Tobacco: Former Cigarettes Q uit: 2012 Smokeless Tobacco: Never Tobacco Cessation:Counseling Given: Yes Comments:vape Alcohol Use Standard Drinks/Week Comments Not Currently 0 (1 standard drink = 0.6 oz pur e alcohol) 1 nightly Sex and Gender Information Value Date Recorded Sex Assigned at Not on file Gender Identity Not on file Sexual Orientation Not on file Last Filed Vital Signs Vital Sign Reading Time Taken Comments Blood Pressure 160/100 01/16/2020 1:26 PM CDT Pulse 87 01/16/2020 1:26 PM CDT Temperature 36.9 ??C (98.5 ??F) 01/16/2020 1:26 PM CD T Respiratory Rate 18 01/02/2020 6:22 PM CDT Oxygen Saturation 98% 01/16/2020 1:26 PM CDT Inhaled Oxygen Concentration - - Weight 128.4 kg (283 lb) 01/16/2020 1:26 PM CDT Height 172.7 cm (5' 8 ) 01/16/2020 1:26 PM CDT Body Mass Index 43.03 01/16/2020 1:26 PM CDT Plan of Treatment Health Maintenance Due Date Last Done Comments COLOGUARD (AGES 45-75) - COLON CA SCREENING 1971 COLON MONITORING 1971 COLONOSCOPY - COLON CA SCREENING 1971 CT COLONOGRAPHY - COLON CA SCREENING 1971 Colorectal Cancer Screening 1971 FIT - COLON CA SCREENING 1971 FLEX SIG - COLON CA SCREENING 1971 LIPID TESTING 1971 HIV SCREENING 1986 HEPATITIS C SCREENING 11/28/1989 DTAP/TDAP/TD VACCINES (1 - Tdap) 1990 HEPATITIS B VACCINE (1 of 3 - 19+ 3-dose series) 1990 PNEUMOCOCCAL VACCINE 50+ (1 of 1 - PCV) 2021 ZOSTER VACCINE (1 of 2) 2021 SCREENING FOR DIABETES 12/19/2022 0, 12/19/2019, 12/18/2019, Additional history exists COVID-19 VACCINE (1 - 2023- season) 2024 INFLUENZA VACCINE (#1) 2024 DEPRESSION SCREENING 10/22/2024 HIB VACCINE Aged Out No longer eligi ble based on patient's age to complete this topic HPV VACCINE Aged Out No longer eligi ble based on patient's age to complete this topic MENINGOCOCCAL (Group B) VACCINE Aged Out No longer eligible based on patient's age to complete this topic MENINGOCOCCAL VACCINE Aged Out No neetu jordan eligible based on patient's age to complete this topic PNEUMOCOCCAL VACCINE Aged Out No long er eligible based on patient's age to complete this topic Procedures Procedure Name Priority Date/Time Associated Diagnosis Comments BASIC METABOLIC PANEL (CALCIUM TOTAL) AM Draw 12/19/2019 2:44 AM CANNERY WORKER from Last 3 Months or Most Recently Relevant to Health Maintenance Results * (ABNORMAL) BASIC METABOLIC PANEL (CALCIUM TOTAL) (12/19/2019 2:44 AM CANNERY WORKER) Glucose 124(H) 70 - 105 mg/dL 12/19/2019 4:31 AM CANNERY WORKER [facility] Sodium 136 136 - 145 mmol/L 12/19/2019 4:31 AM CANNERY WORKER [facility] Potassium 4.1 3.5 - 5.1 mmol/L 12/19/2019 4:31 AM CANNERY WORKER [facility] Chloride 106 98 - 107 mmol/L 12/19/2019 4:31 AM CANNERY WORKER [facility] CO2 18(L) 23 - 31 mmol/L 12/19/2019 4:31 AM CANNERY WORKER [facility] Calcium 7.6(L) 8.4 - 10.4 mg/dL 12/19/2019 4:31 AM [facility] Anion Gap 12 8 - 16 mmol/L 12/19/2019 4:31 AM CANNERY WORKER [facility] BUN 21(H) 8.9 - 20.6 mg/dL 12/19/2019 4:31 AM CANNERY WORKER [facility] Creatinine 0.97 0.72 - 1.25 mg/dL 12/19/2019 4:31 AM CANNERY WORKER [facility] eGFR by MDRD >60 >60 mL/min/1.7 3m2 12/19/2019 4:31 AM CANNERY WORKER [facility] eGFR by MDRD >60 >60 mL/min/1.7 3m2 12/19/2019 4:31 AM CANNERY WORKER [facility] Blood BLOOD SPECIMEN / Unknown Lab Venipuncture / Unknown 12/19/2019 2:44 AM CANNERY WORKER 12/19/2019 3:55 AM CANNERY WORKER Mark Quick MD LAB - CHEMISTRY [facility] Organization Address City/State/[facility] Co de Phone Number [facility] [address] [place] [address] from Last 3 Months or Most Recently Relevant to Health Maintenance Advance Directives * Full Code (Latest Code Status on File) Date Activated Date Inactivated Comments 12/19/2019 1:50 AM 12/19/2019 8:41 PM Care Teams Entry Level Web Developer Relationship Specialty Start Date End Date Henrry Multani MD [address] [place] [address] PCP - General Family Medicine 08/28/19
--- OUTSIDE RECORDS SUMMARY | 2024-11-15 06:55 | XMS_ITS | Clinical Summary ---
Author Organization [facility] Address [address] [place] [address] Care Team Providers Care Tip Inserter Name Role Phone CharoNanbryn Serranoh Primary Care Provider Allergies Active Allergy Reactions Criticality Noted Date [...] (08/01/2022): Added automatically from request for surgery [id number] Traumatic incomplete tear of right rotator cuff 08/01/2022 Overview (08/01/2022): Added automatically from request for surgery [id number] Subluxation of tendon of long head of biceps 08/2022 Overview (08/01/2022): Added automatically from request for surgery [id number] Abdominal pannus 11/10/2019 Weight loss 12/09/2018 Meralgia paresthetica 07/20/2016 Morbid obesity 07/19/2016 Obstructive sleep apnea syndrome 07/19/2016 Encounters Date Type Department Care Team Description 09/18/2024 1:07 PM MINERALOGY PROFESSOR - 09/18/2024 2:19 PM [facility] Emergency [facility] Emergency Department [address] [place] [address] Laceration of left index finger without foreign body with damage to nail, initial encounter (Primary Dx) Discharge Disposition: Discharge to home or self care from Last 3 Months Immunizations Name Administration Dates Next Due Tdap 09/18/2024() Surgical History Surgery Date Site/Laterality Comments [place] NEUROPLASTY &/TRANSPOS MEDIAN NRV CARPAL TUNNE 10/22/2008 - 10/21/2009 Bilateral Neuroplasty Decompression Median Nerve At Carpal Tunnel - (Added by TW Conv) AK NEUROPLASTY &/TRANSPOSITION ULNAR NERVE ELBOW 10/22/2008 - 10/21/2009 Bilateral Neuroplasty With Transposition Of Ulnar Nerve - At Elbow - (Added by TW Conv) GASTRECTOMY 10/22/2015 - 10/21/2016 Gastrectomy Sleeve - (Added by TW Conv) COSMETIC SURGERY 10/22/2019 - 10/21/2020 skin removal, and 2019 LASIK 10/22/2011 - 10/21/2012 FLUORO GUIDED INJECTION SHOULDER RIGHT 06/05/2022 Right COLONOSCOPY FLUORO GUIDED INJECTION SHOULDER RIGHT 10/24/2022 Right Medical History Medical History Date Comments Personal history of other di seases of the nervous system and sense organs History of carpal tunnel syndrome - (Added by TW Conv) 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 - (Added by TW Conv) GERD (gastroesophageal reflu x disease) Years ago reports PRN prilosec ~3-4x/w three affiliated Former smoker quit 2011 Shoulder pain Sleep apnea wears CPAP Motion sickness backseat of car or spinning rides Rotator cuff tear Gout reports last fla re ~2mo ago HLD (hyperlipidemia) Family History Medical History Relation Name Comments Obesity Brother Family history of obesity - (Added by TW Conv) Congenital heart disease Father Fam dina history of congenital heart disease - (Added by TW Conv) Obesity Maternal Grandmother Family history of obesity - (Added by TW Conv) Diabetes Mother Mom Family history of diabetes mellitus - (Added by TW Conv) Obesity Mother Mom Family history of obesity - (Added by TW Conv) Transient ischemic attack Mother Mom Obesity Paternal Grandmother Family history of obesity - (Added by TW Conv) Obesity Sister Family history of obesity - (Added by TW Conv) Relation Name Status Comments Brother Father Maternal Grandmother Mother Mom Paternal Grandmother Sister Social History Tobacco Use Types Packs/Day Years [...] on file Legal Sex Male 11:24 PM MINERALOGY PROFESSOR Gender Identity Male 05/22/2022 8:52 AM CDT Sexual Orientation Straight 05/22/2022 8: 52 AM CDT Obstetrics History Last Filed Vital Signs Vital Sign Reading Time Taken Comments Blood Pressure 145/82 09/18/2024 2:18 PM MINERALOGY PROFESSOR Pulse 84 09/18/2024 2:18 PM MINERALOGY PROFESSOR Temperature 36.7 ??C (98 ??F) 09/18/2024 1:10 PM MINERALOGY PROFESSOR Respiratory Rate 20 09/18/2024 2:18 PM MINERALOGY PROFESSOR Oxygen Saturation 98% 09/18/2024 2:18 PM MINERALOGY PROFESSOR Inhaled Oxygen Concentration - - Weight 127 kg (280 lb) 09/18/2024 1:10 PM MINERALOGY PROFESSOR Height 172.7 cm (5' 8 ) 09/05/2022 5:50 AM MINERALOGY PROFESSOR Body Mass Index 42.57 09/05/2022 5:50 AM MINERALOGY PROFESSOR Plan of Treatment Health Maintenance Due Date Last Done Comments Colon Cancer Screening-Colonoscopy 1971 Depression Screening 1971 Hepatitis C Screening 1971 Prostate Cancer Screening-PSA 1971 DTaP/Tdap/Td Vaccine (1 - Tdap) 1982 Hepatitis B Screening 1989 Regular Well Visit/Exam 18-64 1989 Zoster Vaccine (1 of 2) 2021 Covid-19 Vaccine ( season) 2024 08/22/2022, 01/27/2022, 09/11/2021, Additional history exists Influenza Vaccine (#1) 2024 08/22/2022, 2020 Pneumococcal vaccine <65 Aged Out No longer eligible based on patient's age to complete this topic Medical Devices Implanted Type Area Hand Mica Plate Layer Device Identifier Shelf Expiration Date Model / Serial / Lot [employer] Set Implant Arthrex Fibertak Biceps Sterile Latex Free Ar-3670 - [id number] Implanted:Qty: 1 on 09/05/2022 by Derrek Carlos MD at [facility] Right: Shoulder [employer] 03/21/2027 AR-3670 / / [id number] Description:[employer] SET IMPLANT ARTHREX FIBERTAK BICEPS STERILE LATEX FREE AR-3670 - [id number] Procedures Procedure Name Priority Date/Time Associated Diagnosis Comments XR FINGER 2ND INDEX LEFT ED 09/18/2024 1:28 PM MINERALOGY PROFESSOR from Last 3 Months Results * XR Finger 2Nd Index Left (09/18/2024 1:28 PM MINERALOGY PROFESSOR) Anatomical Region Laterality Modality Upper Extremities, Hand, Fingers Left Computed Radiography 09/18/2024 2:03 PM MINERALOGY PROFESSOR Narrative 09/18/2024 2:04 PM MINERALOGY PROFESSOR EXAM DESCRIPTION: XR FINGER 2ND INDEX LEFT [...] PM T: ??09/18/2024 2:04 PM Report ID: [id number] Reading Location: ??[id number] Procedure Note Arcenio Howard Jr., MD - [...] by Arcenio Howard M.D. CH: Report ID: [id number] Reading Location: [place] [address] [address] [facility] XR PROCEDURES Final Result from Last 3 Months Insurance CHOICE PLUS CHOICE PLUS Care Teams Tip Inserter Relationship Specialty Start Date End Date Kenneth Mancilla DO [address] [place] [address] PCP - General Family Medicine 05/18/22
--- OUTSIDE RECORDS SUMMARY | 2024-11-15 06:55 | XMS_ITS | Patient Health Summary ---
Author Organization [facility] Address [address] [place] [address] Care Team Providers Care Computer Customer Support Specialist Name Role Phone eHnrry Multani MD Primary Care Provider [phone] Note from [facility],non-owned Affiliates and Associated Physician Practices is amultiple site organization consisting of ambulatory clinics and hospital sitesin [place], [place], [place] and [place]. This disclosure is being madepursuant to the Care Everywhere program and may not contain all information available regarding this patient. Last updated 18.[facility] Allergies * Amoxicillin(Urticaria) -High Criticality * Penicillins(Urticaria) -High Criticality * Penicillins(Rash) -Medium Criticality,Inactive Medications * Be aware that medications may not be up to date on this document. Alwaysverify current medications with the patient. * Cyanocobalamin (NASCOBAL) 500 MCG/0.1ML [place] into the nose every 7 days * omeprazole (PRILOSEC) 20 MG capsule Take 20 mg by mouth daily before breakfast * acetaminophen (TYLENOL) 500 MG tablet(Started 12/18/2019) Take 1 tablet by mouth every 4 hours as needed for Fever or Pain Maximum allowable Acetaminophen amount = 4 Grams (4000 mg) / 24 hours. * oxyCODONE, immediate release, (ROXICODONE) 5 MG tablet(Started 12/18/2019) Take 1 tablet by mouth every 2 hours as needed for Pain * docusate sodium (COLACE) 100 MG capsule(Started 12/18/2019) Take 1 capsule by mouth once daily as needed for Constipation * enoxaparin (LOVENOX) injection(Started 12/19/2019) INJ 40 MG SC IN YOUR THIGH ONLY D FOR 5 DAYS Active Problems Problem Noted Date Diagnosed Date S/P abdominoplasty 01/05/2020 Post-operative state 12/18/2019 Abdominal pannus 11/10/2019 Weight loss 12/09/2018 Resolved Problems Problem Noted Date Diagnosed Date Resolved Date Hemorrhage 12/18/2019 01/05/2020 Rash 12/09/2018 01/06/2019 Social History Tobacco Use Types Packs/Day Years [...] Mass Index 43.03 01/16/2020 1:26 PM CDT Procedures * CARDIAC RHYTHM STRIP ORDER(Performed 12/22/2019) * CBC W AUTO DIFFERENTIAL(Performed 12/19/2019) Performed for Post-operative state * GLUCOSE - POINT OF CARE(Performed 12/19/2019) * CBC W AUTO DIFFERENTIAL(Performed 12/19/2019) Performed for Post-operative state * BASIC METABOLIC PANEL (CALCIUM TOTAL)(Performed 12/19/2019) * TYPE + SCREEN PANEL(Performed 12/18/2019) * COMPREHENSIVE METABOLIC PANEL(Performed 12/18/2019) * CBC W AUTO DIFFERENTIAL(Performed 12/18/2019) * ENDOTRACHEAL TUBE NOTE(Performed 12/18/2019) * EXCISION MASS OR TUMOR CHEST(Performed 12/18/2019) Performed for Diagnosis unknown * OK EXC SKIN & SUBQ TISSUE ABD PANNICULECTOMY(Performed 12/18/2019) Performed for Diagnosis unknown * COMPREHENSIVE METABOLIC PANEL(Performed 11/10/2019) Performed for Weight loss * CBC W AUTO DIFFERENTIAL(Performed 11/10/2019) Performed for Weight loss * CARDIAC RHYTHM STRIP ORDER(Performed 09/01/2019) * ENDOTRACHEAL TUBE NOTE(Performed 08/28/2019) * OK EXC SKIN & SUBQ TISSUE ABD PANNICULECTOMY(Performed 08/28/2019) Performed for Diagnosis unknown * STREP A SCREEN - POINT OF CARE (AMB) STL(Performed 03/30/2019) Performed for Acute streptococcal pharyngitis Results * CARDIAC RHYTHM STRIP ORDER (12/22/2019 8:49 PM MOTEL CLERK) Only the most recent of2 resultswithin the time period is included. Narrative 12/22/2019 8:49 PM MOTEL CLERK Ordered by an unspecified provider. Scanned Document CARDIAC SERVICES ORD ERABLES * (ABNORMAL) CBC W AUTO DIFFERENTIAL (12/19/2019 3:33 PM MOTEL CLERK) Only the most recent of4 resultswithin the time period is included. WBC 7.3 4.4 - 10.7 x10E9/L 12/19/2019 3:46 PM MOTEL CLERK [facility] WBC Corrected 12/19/2019 3:46 PM MOTEL CLERK [facility] RBC 3.46(L) 3.80 - 5.40 x10E12/L 12/19/2019 3:46 PM MOTEL CLERK [facility] Hemoglobin 11.2(L) 12.0 - 17.6 gm/dL 12/19/2019 3:46 PM MOTEL CLERK [facility] Hematocrit 32.2(L) 35.2 - 51.7 % 12/19/2019 3:46 PM MOTEL CLERK [facility] MCV 93.1 80.7 - 98.3 fl 12/19/2019 3:46 PM MOTEL CLERK [facility] MCH 32.4 26.7 - 34.0 pg 12/19/2019 3:46 PM MOTEL CLERK [facility] MCHC 34.8 30.8 - 35.9 gm/dL 12/19/2019 3:46 PM MOTEL CLERK [facility] Platelet Count 138(L) 153 - 416 x10E9/L 12/19/2019 3:46 PM [facility] RDW-CV 13.3 12.1 - 14.9 % 12/19/2019 3:46 PM [facility] MPV 10.2 9.4 - 12.9 fl 12/19/2019 3:46 PM [facility] Neutrophils % 64.8 44.0 - 73.0 % 12/19/2019 3:46 PM [facility] Lymphocytes % 27.4 20.0 - 43.0 % 12/19/2019 3:46 PM [facility] Monocytes % 6.7 5.0 - 13.0 % 12/19/2019 3:46 PM [facility] Eosinophils % 0.7 0.0 - 6.0 % 12/19/2019 3:46 PM [facility] Basophils % 0.3 0.0 - 2.0 % 12/19/2019 3:46 PM [facility] Immature Granulocytes 0.1 0 - 1 % 12/19/2019 3:46 PM [facility] Neutrophil Absolute 4.70 2.01 - 7.14 x10E9/L 12/19/2019 3:46 PM [facility] Lymphocytes Absolute 1.99 1.07 - 3.94 x10E9/L 12/19/2019 3:46 PM [facility] Monocytes Absolute 0.49 0.26 - 1.07 x10E9/L 12/19/2019 3:46 PM [facility] Eosinophils Absolute 0.05 0 - 0.47 x10E9/L 12/19/2019 3:46 PM [facility] Basophils Absolute 0.02 0 - 0.08 x10E9/L 12/19/2019 3:46 PM [facility] Immature Granulocytes Absolute 0.01 0.00 - 0.06 x10E9/L 12/19/2019 3:46 PM [facility] nRBC Auto 0 /100 WBC 12/19/2019 3:46 PM [facility] Blood BLOOD SPECIMEN / Unknown Lab Venipuncture / Unknown 12/19/2019 3:33 PM MOTEL CLERK 12/19/2019 3:40 PM MOTEL CLERK Laura Bustos MD LAB - HEMATOLOGY ORD ERABLES [facility] [address] [place] [address] * GLUCOSE - POINT OF CARE (12/19/2019 10:46 AM MOTEL CLERK) Glucose WB/POC 93 70 - 106 mg/dL 12/19/2019 10:57 AM [facility] Specimen Type Arterial/C apillary 12/19/2019 10:57 AM [facility] Blood BLOOD SPECIMEN / Unknown 12/19/2019 10:46 AM MOTEL CLERK 12/19/2019 10:57 AM MOTEL CLERK Ant Macias MD LAB - POINT OF CA RE ORDERABLES [facility] [address] [place] [address] * (ABNORMAL) BASIC METABOLIC PANEL (CALCIUM TOTAL) (12/19/2019 2:44 AM MOTEL CLERK) Glucose 124(H) 70 - 105 mg/dL 12/19/2019 4:31 AM [facility] Sodium 136 136 - 145 mmol/L 12/19/2019 4:31 AM [facility] Potassium 4.1 3.5 - 5.1 mmol/L 12/19/2019 4:31 AM [facility] Chloride 106 98 - 107 mmol/L 12/19/2019 4:31 AM [facility] CO2 18(L) 23 - 31 mmol/L 12/19/2019 4:31 AM [facility] Calcium 7.6(L) 8.4 - 10.4 mg/dL 12/19/2019 4:31 AM [facility] Anion Gap 12 8 - 16 mmol/L 12/19/2019 4:31 AM [facility] BUN 21(H) 8.9 - 20.6 mg/dL 12/19/2019 4:31 AM [facility] Creatinine 0.97 0.72 - 1.25 mg/dL 12/19/2019 4:31 AM [facility] eGFR by MDRD >60 >60 mL/min/1.7 3m2 12/19/2019 4:31 AM [facility] eGFR by MDRD >60 >60 mL/min/1.7 3m2 12/19/2019 4:31 AM MOTEL CLERK [facility] Blood BLOOD SPECIMEN / Unknown Lab Venipuncture / Unknown 12/19/2019 2:44 AM MOTEL CLERK 12/19/2019 3:55 AM MOTEL CLERK Mark Quick MD LAB - CHEMISTRY [facility]TY PRINCE Performing Organization Address [facility] Co de Phone Number [facility] [address] [place] [address] * TYPE + SCREEN PANEL (12/18/2019 11:07 PM MOTEL CLERK) ABO A 12/18/2019 11:44 PM MOTEL CLERK [facility] Rh Type Negative 12/18/2019 11:44 PM MOTEL CLERK [facility] Comment:History checked. Col lect retype. Antibody Screen Negative 12/18/2019 11:44 PM MOTEL CLERK [facility] Blood Bank BLOOD SPECIMEN / Unknown Venipuncture / Unknown 12/18/2019 11:07 PM MOTEL CLERK 12/18/2019 11:09 PM MOTEL CLERK Sachin Price MD LAB - BLOOD BA NK ORDERABLES Performing Organization Address [facility] Co de Phone Number [facility] [address] [place] [address] * (ABNORMAL) COMPREHENSIVE METABOLIC PANEL (12/18/2019 9:08 PM MOTEL CLERK) Only the most recent of2 resultswithin the time period is included. Glucose 129(H) 70 - 105 mg/dL 12/18/2019 9:30 PM [facility] Sodium 138 136 - 145 mmol/L 12/18/2019 9:30 PM [facility] Potassium 4.2 3.5 - 5.1 mmol/L 12/18/2019 9:30 PM [facility] Chloride 104 98 - 107 mmol/L 12/18/2019 9:30 PM [facility] CO2 22(L) 23 - 31 mmol/L 12/18/2019 9:30 PM [facility] Calcium 8.3(L) 8.4 - 10.4 mg/dL 12/18/2019 9:30 PM [facility] Anion Gap 12 8 - 16 mmol/L 12/18/2019 9:30 PM [facility] BUN 22(H) 8.9 - 20.6 mg/dL 12/18/2019 9:30 PM [facility] Creatinine 1.19 0.72 - 1.25 mg/dL 12/18/2019 9:30 PM [facility] Alkaline Phosphatase 75 40 - 150 U/L 12/18/2019 9:30 PM [facility] ALT 19 0 - 61 U/L 12/18/2019 9:30 PM [facility] AST 16 5 - 34 U/L 12/18/2019 9:30 PM [facility] Protein Total 6.5 6.4 - 8.3 gm/dL 12/18/2019 9:30 PM [facility] Albumin 4.3 3.5 - 5.2 gm/dL 12/18/2019 9:30 PM [facility] Bilirubin Total 0.9 0.2 - 1.2 mg/dL 12/18/2019 9:30 PM [facility] eGFR by MDRD >60 >60 mL/min/1.7 3m2 12/18/2019 9:30 PM [facility] eGFR by MDRD >60 >60 mL/min/1.7 3m2 12/18/2019 9:30 PM [facility] Blood BLOOD SPECIMEN / Unknown Venipuncture / Unknown 12/18/2019 9:08 PM MOTEL CLERK 12/18/2019 9:14 PM [facility] Sachin Price MD LAB - CHEMISTR Y ORDERABLES Performing Organization Address [facility]/State/[facility] Co de Phone Number [facility] [address] [place] [address] * ETT LINE PERFORMABLE (12/18/2019 7:55 AM MOTEL CLERK) Narrative Manuel Finn APRN-CRNA - 12/18/2019 7:55 AM MOTEL CLERK Manuel Finn APRN-CRNA ? 12/18/2019 ??7:56 AM Endotracheal Tube Placement: ? Patient Location: OR. Intubation Event Date/Time: ??12/18/2019 7:44 AM Procedure: intubation ([id number]). Procedure Section: ?? Sedation: under general anesthesia. Indications for Airway Management: ??anesthesia Procedure pretreatments used? ??No Induction: modified rapid sequence Patient Position: ??sniffing, ramp/troop pillow and supine Mask Ventilation: easy. Blade Type: Balta Blade Size: 4 Laryngoscopy View: grade 1 (full cords) Intubation Adjuncts: stylet Tube: endotracheal tube Placement: oral Tube type: cuff - inflated Tube Size (MM): 8 Depth of Insertion (CM): 23 Measured From: lips Cuff volume (mL): ??7 Cuff Inflated With: air Number of Attempts: 1. Placement Verified By: direct visualization, CO2 detector, bilateral breath sounds, chest auscultation and CO2 monitor Tube secured with: ??adhesive tape. Difficult Airway? ??No. Procedure Start Time: 12/18/2019 7:44 AM. Staff Section ?? Anesthesia Provider: Manuel Finn APRN-CRNA, Performed the procedure Dinorah Jackson DO GENERAL ANESTHESIA ORDERABLES * ETT LINE PERFORMABLE (08/28/2019 11:50 AM MOTEL CLERK) Narrative Petrona Robertson APRN-CRNA - 08/28/2019 11:50 AM MOTEL CLERK Petrona Robertson APRN-CRNA ? 08/28/2019 11:50 AM Endotracheal Tube Placement: ? Patient Location: OR. Intubation Event Date/Time: ??08/28/2019 11:28 AM Procedure: intubation ([id number]). Procedure Section: ?? Sedation: under general anesthesia. Indications for Airway Management: ??anesthesia Induction: standard IV Patient Position: ??sniffing and supine Mask Ventilation: easy. Blade Type: Balta Blade Size: 4 Laryngoscopy View: grade 1 (full cords) Intubation Adjuncts: stylet Tube: endotracheal tube Placement: oral Tube type: cuff - inflated Tube Size (MM): 8 Depth of Insertion (CM): 24 Measured From: lips Cuff volume (mL): ??7 Cuff inflation pressure (CM H20): ??20 Cuff Inflated With: air Number of Attempts: 1. Placement Verified By: direct visualization, bilateral breath sounds, chest auscultation and CO2 monitor Tube secured with: ??adhesive tape. Difficult Airway? ??No. Procedure Start Time: 08/28/2019 11:28 AM. Staff Section ?? Anesthesia Provider: Petrona Robertson APRN-TRUCK DRIVER SALESPERSON, Performed the procedure Additional Comments: Atraumatic intubation. All mouth, lips, tongue, teeth same condition as baseline. Dinorah Jackson DO GENERAL ANESTHESIA ORDERABLES * (ABNORMAL) STREP A SCREEN - POINT OF CARE (AMB) STL (03/30/2019) Strep A Rapid POCT Positive(A) Negative Strep A Internal Control Present Lot # [id number] Expiration Date 09/20/2020 Throat ENTIRE THROAT (SURFACE REGION OF NECK) / Unknown 03/30/2019 Merline Ivan APRN-SENIOR CORE JAVA DEVELOPER LAB - POINT OF CARE ORDERABLES Care Teams Computer Customer Support Specialist Relationship Specialty Start Date End Date Henrry Multani MD [address] [place] [id number] PCP - General Family Medicine 08/28/19
--- OUTSIDE RECORDS SUMMARY | 2024-11-15 06:55 | XMS_ITS | Referral Summary ---
Author Organization [facility] Address [address] [place] [address] Care Team Providers Care Governor Assembler Name Role Phone Henrry Multani MD Primary Care Provider [phone] Source Comments [facility],non-owned Affiliates and Associated Physician Practices is amultiple site organization consisting of ambulatory clinics and hospital sitesin [place], [place], [place] and [place]. This disclosure is being madepursuant to the Care Everywhere program and may not contain all information available regarding this patient. Last updated 18.[facility] Allergies Active Allergy Reactions Criticality Noted Date Comments Amoxicillin Urticaria High 12/09/2018 Penicillins Urticaria High 12/09/2018 Medications * Be aware that medications may not be up to date on this document. Alwaysverify current medications with the patient. Medication Sig Dispensed Refills Start Date End Date Status Cyanocobalamin (NASCOBAL) 500 MCG/0.1ML [employer] into the nose every 7 days Active [...] Date Smoking Tobacco: Former Cigarettes Q uit: 2011 Smokeless Tobacco: Never Tobacco Cessation:Counseling Given: Yes [...] Mass Index 43.03 01/16/2020 1:26 PM CDT Functional Status Functional Status Response Date of Assess ment Is person deaf or have serious hearing difficult y? No 12/19/2019 Is person blind or have serious difficulty seein g? No 12/19/2019 Does person have serious dif ficulty walking/climbing stairs? No 12/19/2019 Does person have difficulty dressing/bathing? No 12/19/2019 Does person have difficulty doing errands alone? No 12/19/2019 Cognitive Status Response Date of Assessm ent Does person have difficulty concentrating/remembering/making decisions? No 12/19/2019 Plan of Treatment Not on file Procedures Procedure Name Priority Date/Time Associated Diagnosis Comments BASIC METABOLIC PANEL (CALCIUM TOTAL) AM Draw 12/19/2019 2:44 AM DAG SPRAYER from Last 3 Months or Most Recently Relevant to Health Maintenance Results * (ABNORMAL) BASIC METABOLIC PANEL (CALCIUM TOTAL) (12/19/2019 2:44 AM DAG SPRAYER) Glucose 124(H) 70 - 105 mg/dL 12/19/2019 4:31 AM DAG SPRAYER [facility] Sodium 136 136 - 145 mmol/L 12/19/2019 4:31 AM DAG SPRAYER [facility] Potassium 4.1 3.5 - 5.1 mmol/L 12/19/2019 4:31 AM [facility] Chloride 106 98 - 107 mmol/L 12/19/2019 4:31 AM [facility] CO2 18(L) 23 - 31 mmol/L 12/19/2019 4:31 AM [facility] Calcium 7.6(L) 8.4 - 10.4 mg/dL 12/19/2019 4:31 AM [facility] Anion Gap 12 8 - 16 mmol/L 12/19/2019 4:31 AM [facility] BUN 21(H) 8.9 - 20.6 mg/dL 12/19/2019 4:31 AM [facility] Creatinine 0.97 0.72 - 1.25 mg/dL 12/19/2019 4:31 AM [facility] eGFR by MDRD >60 >60 mL/min/1.7 3m2 12/19/2019 4:31 AM [facility] eGFR by MDRD >60 >60 mL/min/1.7 3m2 12/19/2019 4:31 AM [facility] Blood BLOOD SPECIMEN / Unknown Lab Venipuncture / Unknown 12/19/2019 2:44 AM DAG SPRAYER 12/19/2019 3:55 AM DAG SPRAYER Mark Quick MD LAB - CHEMISTRY [facility]TY PRINCE [facility] Organization Address City/State/ZIP Co de Phone Number [facility] [address] [place] [address] from Last 3 Months or Most Recently Relevant to Health Maintenance Advance Directives * Full Code (Latest Code Status on File) Date Activated Date Inactivated Comments 12/19/2019 1:50 AM 12/19/2019 8:41 PM Care Teams Governor Assembler Relationship Specialty Start Date End Date Henrry Multani MD [address] [place] [address] PCP - General Family Medicine 08/28/19
[2024-11-15 07:57] LABS: Basophils Absolute Auto 0.05 K/mm3 (0.00-0.10); Basophils Percent Auto 0.9 % (0.0-1.0); Eosinophils Absolute Auto 0.11 K/mm3 (0.02-0.50); Hematocrit 46.5 % (40.0-54.0); Hemoglobin 15.7 g/dL (14.0-18.0); Immature Granulocyte Absolute 0.02 K/mm3 (0.00-0.00); Immature Granulocyte Percent A 0.4 % (0.0-0.0); Lymphocytes Absolute Auto 1.53 K/mm3 (1.10-4.50); Lymphocytes Percent Auto 27.5 % (18.0-42.0); Mean Corpuscular HGB Conc 33.8 g/dL (32-36); Mean Corpuscular Hemoglobin 31.6 pg (27.0-31.0); Mean Corpuscular Volume 93.6 fL (78.0-102.0); Mean Platelet Volume 10.2 fl (8.7-11.0); Monocytes Percent Auto 7.2 % (2.0-11.0); Neutrophils Absolute Auto 3.45 K/mm3 (1.70-7.20); Platelet Count Result 162 K/mm3 (150-420); Red Blood Count 4.97 M/mm3 (4.70-6.10); Red Cell Distribution Width 13.1 % (11.6-14.4); White Blood Count 5.6 K/mm3 (4.8-10.8)
[2024-11-15 08:43] LABS: Hemoglobin A1C 5.1 % (<5.7)
[2024-11-15 09:00] LABS: Alanine Aminotransferase 31 U/L (16-63); Albumin Level 4.2 g/dL (3.4-5.0); Alkaline Phosphatase 96 U/L (46-116); Anion Gap 7 mmol/L (4-12); Aspartate Amino Transferase 18 U/L (15-37); Bilirubin,Total 1.3 mg/dL (0.00-1.00); Blood Urea Nitrogen 17 mg/dL (7-18); Calcium 8.9 mg/dL (8.5-10.1); Carbon Dioxide 29 mmol/L (21-32); Chloride 101 mmol/L (98-108); Cholesterol 166 mg/dL (0-200); Estimated Glomerular Filt Rate > 60; Ferritin 69 ng/mL (26-388); Glucose 104 mg/dL (70-99); HDL Direct 80 mg/dL (40-60); Iron 208 ug/dL (65-175); LDL Cholesterol Calculated 73 mg/dL (<130); Osmolality Calculated 285 mOsm/kg (285-295); Percent Iron Saturation 65 % (12-57); Potassium 3.3 mmol/L (3.5-5.1); Sodium 137 mmol/L (136-145); Total Protein 6.3 g/dL (6.4-8.2); Triglycerides 67 mg/dL (0-150); Uric Acid 5.8 mg/dL (3.5-7.2); Vitamin B12 394 pg/mL (193-986)
[2024-11-15 09:04] LABS: Folic Acid > 20.0 ng/mL (8.6->20)
[2024-11-15 09:04] LABS: Thyroid Stimulating Hormone Reflex 2.33 u/IU/mL (0.36-3.74)
== END 2024-11-15 06:52 | disposition home or self-care (01) ==
LOC: CHSLAB 06:52
PROVIDERS: PCP Family Medicine; Visit Provider Family Medicine
DX: M10.9 Gout, unspecified (principal); E03.9 Hypothyroidism, unspecified; E66.01 Morbid (severe) obesity due to excess calories; E53.8 Deficiency of other specified B group vitamins; D64.9 Anemia, unspecified; D50.9 Iron deficiency anemia, unspecified; R79.89 Other specified abnormal findings of blood chemistry; E11.9 Type 2 diabetes mellitus without complications
CPT/HCPCS: 36415; 80053; 80061; 82607; 82652; 82728; 82746; 83036; 83540; 83550; 84443; 84550; 84590; 85025

== ENCOUNTER 2025-06-25 14:19 | Outpatient (CLI) | payer OTHER, SELFPAY ==
--- NOTE | ~2025-06-25 | MR_ITS ---
EXAMINATION: MR shoulder LT wo con DATE: 06/25/2025 15:04 INDICATION: Left shoulder mass TECHNIQUE: Magnetic resonance imaging (MRI) of the left shoulder was performed without intravenous contrast. Sequences included axial PD-weighted FS FSE, coronal oblique PD-weighted FS FSE, coronal oblique T2-weighted FS FSE, sagittal PD-weighted FS FSE, and sagittal T1-weighted SE. COMPARISON: None. FINDINGS: Coracoacromial arch: The acromion undersurface is curved in morphology (type II). The coracoacromial ligament is normal. Moderate acromioclavicular osteoarthritis. There are subarticular cystlike change at the lateral head of the clavicle. Rotator cuff: Focal mild tendinopathy at the distal aspect of the conjoined portion of the supraspinatus and infraspinatus tendons. More anterior supraspinatus and posterior infraspinatus tendons are normal. The teres minor tendon is normal. Mild subscapularis tendinopathy without discrete tear. Normal rotator cuff muscle bulk and signal. Biceps tendon, glenoid labrum and glenohumeral cartilage: Long head of the biceps tendon is normal. Glenoid labrum is normal. Glenohumeral cartilage is normal. Fluid: Physiologic amount of fluid in the glenohumeral joint and biceps tendon sheath. No loose osteochondral bodies. No abnormal fluid signal in the subacromial/subdeltoid bursa to suggest bursitis. Bones: Bone alignment is normal. No fracture or pathologic marrow replacing process. There is a 4.0 x 3.2 x 1.5 cm ovoid homogeneously fat signal intensity and fat saturating lipoma in the subcutaneous fat overlying the posterior margin of the base of the acromion. No other abnormal masses identified. A few normal-sized and appearing left axillary lymph nodes. IMPRESSION: 1. 4.0 x 3.2 x 1.5 cm subcutaneous lipoma overlying the posterior base of the acromion. 2. Mild focal tendinopathy without discrete tear at the distal aspect of the conjoined supraspinatus and infraspinatus tendons and additional mild subscapularis tendinopathy without discrete tear. 3. Moderate acromioclavicular osteoarthritis with mild subarticular cystlike change at the lateral head of the clavicle. Reviewed, dictated and finalized at location A. IMPRESSION: 1. 4.0 x 3.2 x 1.5 cm subcutaneous lipoma overlying the posterior base of the a cromion. 2. Mild focal tendinopathy without discrete tear at the distal aspect of the co njoined supraspinatus and infraspinatus tendons and additional mild subscapular is tendinopathy without discrete tear. 3. Moderate acromioclavicular osteoarthritis with mild subarticular cystlike ch keily at the lateral head of the clavicle.
--- OUTSIDE RECORDS SUMMARY | 2025-06-25 14:32 | XMS_ITS | Clinical Summary ---
Author Organization [facility] Address [address] [place] [address] Care Team Providers Care Health Data Analyst Name Role Phone CharoNanbryn Serranoh Primary Care [...] (08/01/2022): Added automatically from request for surgery [id number] Traumatic incomplete tear of right rotator cuff 08/01/2022 Overview (08/01/2022): Added automatically from request for surgery [id number] Subluxation of tendon of long head of biceps 08/2022 Overview (08/01/2022): Added automatically from request for surgery [id number] Abdominal pannus 11/10/2019 Weight loss 12/09/2018 Meralgia paresthetica 07/20/2016 Morbid obesity 07/19/2016 Obstructive sleep apnea syndrome 07/19/2016 Immunizations Immunization Administration Dates Next Due Tdap 09/18/2024() Surgical History Surgery Date Site/Laterality Comments [place] NEUROPLASTY &/TRANSPOS MEDIAN NRV CARPAL TUNNE 10/22/2008 - 10/21/2009 Bilateral Neuroplasty Decompression Median Nerve At Carpal Tunnel - (Added by TW Conv) [place] NEUROPLASTY &/TRANSPOSITION ULNAR NERVE ELBOW 10/22/2008 - [...] disease) Years ago reports PRN prilosec ~3-4x/w [place] Former smoker quit 2011 Shoulder pain Sleep [...] on file Legal Sex Male 11:24 PM RECORD PRESS OPERATOR Gender Identity Male 05/22/2022 8:52 AM CDT Sexual Orientation Straight 05/22/2022 8: 52 AM CDT Obstetrics History Last Filed Vital Signs Vital Sign Reading Time Taken Comments Blood Pressure 145/82 09/18/2024 2:18 PM RECORD PRESS OPERATOR Pulse 84 09/18/2024 2:18 PM RECORD PRESS OPERATOR Temperature 36.7 C (98 F) 09/18/2024 1:10 PM RECORD PRESS OPERATOR Respiratory Rate 20 09/18/2024 2:18 PM RECORD PRESS OPERATOR Oxygen Saturation 98% 09/18/2024 2:18 PM RECORD PRESS OPERATOR Inhaled Oxygen Concentration - - Weight 127 kg (280 lb) 09/18/2024 1:10 PM RECORD PRESS OPERATOR Height 172.7 cm (5' 8) 09/05/2022 5:50 AM RECORD PRESS OPERATOR Body Mass Index 42.57 09/05/2022 5:50 AM RECORD PRESS OPERATOR Plan of Treatment Health Maintenance Due Date Last Done Comments Colon Cancer Screening-Colonoscopy 1971 Depression Screening 1971 Hepatitis C Screening 1971 Prostate Cancer Screening-PSA 1971 DTaP/Tdap/Td Vaccine (1 - Tdap) 1982 Hepatitis B Screening 1989 Regular Well Visit/Exam 18-64 1989 Zoster Vaccine (1 of 2) 2021 Covid-19 Vaccine ( season) 2024 08/22/2022, 01/27/2022, 09/11/2021, Additional history exists Influenza Vaccine (#1) 2025 08/22/2022, 2020 Pneumococcal vaccine <65 Aged Out No longer eligible based on patient's age to complete this topic Medical Devices Implanted Type Area Supervisor Travel Trailer Device Identifier Shelf Expiration Date Model / Serial / Lot [employer] Set Implant Arthrex Fibertak Biceps Sterile Latex Free Ar-3670 - [id number] Implanted:Qty: 1 on 09/05/2022 by Derrek Carlos MD at [facility] Right: Shoulder [employer] 03/21/2027 AR-3670 / / [id number] Description:[employer] SET IMPLANT ARTHREX FIBERTAK BICEPS STERILE LATEX FREE AR-3670 - [id number] Insurance [facility] CHOICE PLUS [facility] HMO/PPO Address: [place] [address] [facility]ICE [facility] HMO/PPO Address: [address] [address] [place] [address] Care Teams Health Data Analyst Relationship Specialty Start Date End Date Kenneth Mancilla DO [address] [place] [address] PCP - General Family Medicine 05/18/22
--- OUTSIDE RECORDS SUMMARY | 2025-06-25 14:32 | XMS_ITS | Patient Health Record ---
Author Organization [facility] Address [address] [place], [place] [id number] Care Team Providers Care Roll Edge Stitcher Hand Name Role Phone SYEDA Beckman Unavailable [phone] Eleuterio Chou Unavailable Unavailable Reason For Referral No Information Plan Of Treatment No Information Insurance Providers Payer Name Payer Address Payer Phone Subscriber Number Group Number Insured Name Patient Relationship to Insured Coverage Start Date Coverage End Date [facility] [address] [address] [place] [address] [id number] SELAM QUINONES Self - patient is the insured
--- OUTSIDE RECORDS SUMMARY | 2025-06-25 14:34 | XMS_ITS | Clinical Summary ---
Author Organization [facility] Address [address] [place] [address] Care Team Providers Care Professor Of French Name Role Phone Henrry Multani MD Primary Care Provider Source Comments [facility],non-owned Affiliates and Associated Physician Practices is amultiple site organization consisting of ambulatory clinics and hospital sitesin [place], [place], [place] and [place]. This disclosure is being madepursuant to the Care Everywhere program and may not contain all information available regarding this patient. Last updated 18.[facility] Allergies Active Allergy Reactions Criticality Noted Date Comments Amoxicillin Urticaria High 12/09/2018 Penicillins Urticaria High 12/09/2018 Medications * Be aware that medications may not be up to date on this document. Alwaysverify current medications with the patient. Cyanocobalamin (NASCOBAL) 500 MCG/0.1ML [place] into the nose every 7 days Active omeprazole (PRILOSEC) 20 MG capsule Take 20 mg by mouth daily before breakfast Active acetaminophen (TYLENOL) 500 MG tablet Take 1 tablet by mouth every 4 hours as needed for Fever or Pain Maximum allowable Acetaminophen amount = 4 Grams (4000 mg) / 24 hours. 30 tablet 0 Active oxyCODONE, immediate release, (ROXICODONE) 5 MG tablet Take 1 tablet by mouth every 2 hours as needed for Pain 30 tablet 0 Active Additional Information Patient not taking.Reported on 01/16/2020 docusate sodium (COLACE) 100 MG capsule Take 1 capsule by mouth once daily as needed for Constipation 20 capsule 0 Active Additional Information Patient not taking.Reported on 01/16/2020 enoxaparin (LOVENOX) injection INJ 40 MG SC IN YOUR THIGH ONLY D FOR 5 DAYS 0 Active Active Problems Problem Noted Date Diagnosed [...] at Not on file Legal Sex Male 1:07 PM INVESTIGATION DIVISION LIEUTENANT Gender Identity Not on file Sexual Orientation Not on file Last Filed Vital Signs Vital Sign Reading Time Taken Comments Blood Pressure 160/100 01/16/2020 1:26 PM CDT Pulse 87 01/16/2020 1:26 PM CDT Temperature 36.9 C (98.5 F) 01/16/2020 1:26 PM CDT Respiratory Rate 18 01/02/2020 6:22 PM CDT Oxygen Saturation 98% 01/16/2020 1:26 PM CDT Inhaled Oxygen Concentration - - Weight 128.4 kg (283 lb) 01/16/2020 1:26 PM CDT Height 172.7 cm (5' 8) 01/16/2020 1:26 PM CDT Body Mass Index 43.03 01/16/2020 1:26 PM CDT Plan of Treatment Health Maintenance Due Date Last Done Comments MARY KATE (AGES 45-75) - COLON CA SCREENING 1971 [...] COVID-19 VACCINE (1 - 2023- season) 2024 DEPRESSION SCREENING 10/22/2024 INFLUENZA VACCINE (#1) 2025 HIB VACCINE Aged Out No longer eligi ble based on patient's age to complete this topic HPV VACCINE Aged Out No longer eligi ble based on patient's age to complete this topic MENINGOCOCCAL (Group B) VACCINE SHARED DECISION-MAKING Aged Out No longer eligible based on patient's age to complete this topic MENINGOCOCCAL GROUPS A/C/Y/W VACCINE Aged Out No longer eligible based on patient's age to complete this topic Procedures Procedure Name Priority Date/Time Associated Diagnosis Comments BASIC METABOLIC PANEL (CALCIUM TOTAL) AM Draw 12/19/2019 2:44 AM INVESTIGATION DIVISION LIEUTENANT from Last 3 Months or Most Recently Relevant to Health Maintenance Results * (ABNORMAL) BASIC METABOLIC PANEL (CALCIUM TOTAL) (12/19/2019 2:44 AM INVESTIGATION DIVISION LIEUTENANT) Glucose 124(H) 70 - 105 mg/dL 12/19/2019 4:31 AM INVESTIGATION DIVISION LIEUTENANT [facility] Sodium 136 136 - 145 mmol/L 12/19/2019 4:31 AM INVESTIGATION DIVISION LIEUTENANT [facility] Potassium 4.1 3.5 - 5.1 mmol/L 12/19/2019 4:31 AM INVESTIGATION DIVISION LIEUTENANT [facility] Chloride 106 98 - 107 mmol/L 12/19/2019 4:31 AM INVESTIGATION DIVISION LIEUTENANT [facility] CO2 18(L) 23 - 31 mmol/L 12/19/2019 4:31 AM INVESTIGATION DIVISION LIEUTENANT [facility] Calcium 7.6(L) 8.4 - 10.4 mg/dL 12/19/2019 4:31 AM INVESTIGATION DIVISION LIEUTENANT [facility] Anion Gap 12 8 - 16 mmol/L 12/19/2019 4:31 AM INVESTIGATION DIVISION LIEUTENANT [facility] BUN 21(H) 8.9 - 20.6 mg/dL 12/19/2019 4:31 AM INVESTIGATION DIVISION LIEUTENANT [facility] Creatinine 0.97 0.72 - 1.25 mg/dL 12/19/2019 4:31 AM INVESTIGATION DIVISION LIEUTENANT [facility] eGFR by MDRD >60 >60 mL/min/1.7 3m2 12/19/2019 4:31 AM INVESTIGATION DIVISION LIEUTENANT [facility] eGFR by MDRD >60 >60 mL/min/1.7 3m2 12/19/2019 4:31 AM INVESTIGATION DIVISION LIEUTENANT [facility] Blood BLOOD SPECIMEN / Unknown Lab Venipuncture / Unknown 12/19/2019 2:44 AM INVESTIGATION DIVISION LIEUTENANT 12/19/2019 3:55 AM INVESTIGATION DIVISION LIEUTENANT Mark Quick MD LAB - CHEMISTRY ORDERABLES Final Result Performing Organization Address City/State/[facility] Co de Phone Number [facility] [address] [place] [address] from Last 3 Months or Most Recently Relevant to Health Maintenance Insurance [facility] SELF PAY NO INSURANCE Member Subscriber Plan / Payer (Ef fective for All Dates) Name:Selam Bruno Member ID:Not on file Relation to Subscriber:Self Name:Selam Bruno Subscriber ID:Not on file Payer ID:Not on file Group ID:Not on file Type:Self Pay Address: [place], [place] [facility] Advance Directives * Full Code (Latest Code Status on File) Date Activated Date Inactivated Comments 12/19/2019 1:50 AM 12/19/2019 8:41 PM Care Teams Professor Of French Relationship Specialty Start Date End Date Henrry Multani MD [address] [place] [address] PCP - General Family Medicine 08/28/19
== END 2025-06-25 14:20 | disposition home or self-care (01) ==
PROVIDERS: PCP Family Medicine; Visit Provider Orthopaedic Surgery
DX: R22.32 Localized swelling, mass and lump, left upper limb (principal); D17.22 Benign lipomatous neoplasm of skin and subcutaneous tissue of left arm; M77.8 Other enthesopathies, not elsewhere classified; M19.012 Primary osteoarthritis, left shoulder
CPT/HCPCS: 73221

== ENCOUNTER 2025-10-08 08:18 | Outpatient (CLI) | payer OTHER, SELFPAY ==
--- NOTE | 2025-10-08 08:25 | ECG_ITS ---
Test Date: 2025-10-08 08:32:39 Measurements Intervals [place] Rate: 81 P: 24 SC: 179 QRS: 1 QRSD: 102 T: 12 QT: 368 QTc: 428 Interpretive Statements SINUS RHYTHM INCOMPLETE RIGHT BUNDLE BRANCH BLOCK CONSIDER INFERIOR INFARCT, AGE INDETERMINATE ABNORMAL ECG No previous ECG available for comparison Electronically Signed On 10-08-2025 09:26:57 FLIGHT OPERATIONS SPECIALIST by Terrell Delatorre D.O.
--- OUTSIDE RECORDS SUMMARY | 2025-10-08 08:31 | XMS_ITS | Clinical Summary ---
Author Organization [facility] Address [address] [place] [address] Care Team Providers Care Instructional Technology Specialist Name Role Phone CharoNanbryn Serranoh Primary Care [...] (08/01/2022): Added automatically from request for surgery [id number] Traumatic incomplete tear of right rotator cuff 08/01/2022 Overview (08/01/2022): Added automatically from request for surgery [id number] Subluxation of tendon of long head of biceps 08/2022 Overview (08/01/2022): Added automatically from request for surgery [id number] Abdominal pannus 11/10/2019 Weight loss 12/09/2018 Meralgia paresthetica 07/20/2016 Morbid obesity 07/19/2016 Obstructive sleep apnea syndrome 07/19/2016 Immunizations Immunization Administration Dates Next Due Tdap 09/18/2024() Surgical History Surgery Date Site/Laterality Comments [place] NEUROPLASTY &/TRANSPOS MEDIAN NRV CARPAL TUNNE 10/22/2008 - 10/21/2009 Bilateral Neuroplasty Decompression Median Nerve At Carpal Tunnel - (Added by TW Conv) [place] NEUROPLASTY &/TRANSPOSITION ULNAR NERVE ELBOW 10/22/2008 - [...] disease) Years ago reports PRN prilosec ~3-4x/w [place] Former smoker quit 2011 Shoulder pain Sleep [...] on file Legal Sex Male 11:24 PM COOKING TEACHER Gender Identity Male 05/22/2022 8:52 AM CDT Sexual Orientation Straight 05/22/2022 8: 52 AM CDT Last Filed Vital Signs Vital Sign Reading Time Taken Comments Blood Pressure 145/82 09/18/2024 2:18 PM COOKING TEACHER Pulse 84 09/18/2024 2:18 PM COOKING TEACHER Temperature 36.7 C (98 F) 09/18/2024 1:10 PM COOKING TEACHER Respiratory Rate 20 09/18/2024 2:18 PM COOKING TEACHER Oxygen Saturation 98% 09/18/2024 2:18 PM COOKING TEACHER Inhaled Oxygen Concentration - - Weight 127 kg (280 lb) 09/18/2024 1:10 PM COOKING TEACHER Height 172.7 cm (5' 8) 09/05/2022 5:50 AM COOKING TEACHER Body Mass Index 42.57 09/05/2022 5:50 AM COOKING TEACHER Plan of Treatment Health Maintenance Due Date Last Done Comments Colon Cancer Screening-Colonoscopy 1971 Depression Screening 1971 Hepatitis C Screening 1971 Prostate Cancer Screening-PSA 1971 DTaP/Tdap/Td Vaccine (1 - Tdap) 1982 Hepatitis B Screening 1989 Regular Well Visit/Exam 18-64 1989 Zoster Vaccine (1 of 2) 2021 Covid-19 Vaccine ( season) 2025 08/22/2022, 01/27/2022, 09/11/2021, Additional history exists Influenza Vaccine (#1) 2025 08/22/2022, 2020 Pneumococcal vaccine <65 Aged Out No longer eligible based on patient's age to complete this topic Medical Devices Implanted Type Area Unit Support Representative Device Identifier Shelf Expiration Date Model / Serial / Lot [employer] Set Implant Ar[employer]rex Fibertak Biceps Sterile Latex Free Ar-3670 - [id number] Implanted:Qty: 1 on 09/05/2022 by Derrek Carlos MD at [facility] Right: Shoulder [employer] 03/21/2027 AR-3670 / / [id number] Description:[employer] SET IMPLANT ARTHREX FIBERTAK BICEPS STERILE LATEX FREE AR-3670 - [id number] Insurance [facility] H[facility]/PPO [place]: [place] [address] [facility] CHOICE PLUS [facility] H[facility]/PPO Address: [id number] [place] [address] Care Teams Instructional Technology Specialist Relationship Specialty Start Date End Date Kenneth Mancilla DO [facility] [place] [address] PCP - General Family Medicine 05/18/22
--- OUTSIDE RECORDS SUMMARY | 2025-10-08 08:31 | XMS_ITS | Clinical Summary ---
Author Organization [facility] [employer] Address [address] [place] [address] Care Team Providers Care Sewage Reticulation Drafting Officer Name Role Phone Henrry Multani MD Primary Care Provider [phone] Source Comments [facility] [employer],non-owned Affiliates and Associated Physician Practices is amultiple site organization consisting of ambulatory clinics and hospital sitesin [place], [place], [place] and [place]. This disclosure is being madepursuant to the Care Everywhere program and may not contain all information available regarding this patient. Last updated 18.[facility] [employer] Allergies Active Allergy Reactions Criticality Noted Date Comments Amoxicillin Urticaria High 12/09/2018 Penicillins Urticaria High 12/09/2018 Medications * Be aware that medications may not be up to date on this document. Alwaysverify current medications with the patient. Cyanocobalamin (NASCOBAL) 500 MCG/0.1ML [place] into the nose every 7 days Active [...] Years Used Date Smoking Tobacco: Former Cigarettes 1 Q uit: 2011 Smokeless Tobacco: Never Tobacco Cessation:Counseling Given: Yes Comments:vape Alcohol Use Standard Drinks/Week Comments Not Currently 0 (1 standard drink = 0.6 oz pur e alcohol) 1 nightly Sex and Gender Information Value Date Recorded Sex Assigned at Not on file Legal Sex Male 1:07 PM RETAIL EVENT COORDINATOR Gender Identity Not on file Sexual Orientation [...] 12/19/2022 0, 12/19/2019, 12/18/2019, Additional history exists DEPRESSION SCREENING 10/22/2024 COVID-19 VACCINE (1 - 2024- season) 2025 INFLUENZA VACCINE (#1) 2025 HIB VACCINE Aged [...] (CALCIUM TOTAL) AM Draw 12/19/2019 2:44 AM RETAIL EVENT COORDINATOR from Last 3 Months or Most Recently Relevant to Health Maintenance Results * (ABNORMAL) BASIC METABOLIC PANEL (CALCIUM TOTAL) (12/19/2019 2:44 AM RETAIL EVENT COORDINATOR) Glucose 124(H) 70 - 105 mg/dL 12/19/2019 4:31 AM RETAIL EVENT COORDINATOR [facility] Sodium 136 136 - 145 mmol/L 12/19/2019 4:31 AM RETAIL EVENT COORDINATOR [facility] Potassium 4.1 3.5 - 5.1 mmol/L 12/19/2019 4:31 AM RETAIL EVENT COORDINATOR [facility] Chloride 106 98 - 107 mmol/L 12/19/2019 4:31 AM RETAIL EVENT COORDINATOR [facility] CO2 18(L) 23 - 31 mmol/L 12/19/2019 4:31 AM RETAIL EVENT COORDINATOR [facility] Calcium 7.6(L) 8.4 - 10.4 mg/dL 12/19/2019 4:31 AM RETAIL EVENT COORDINATOR [facility] Anion Gap 12 8 - 16 mmol/L 12/19/2019 4:31 AM RETAIL EVENT COORDINATOR [facility] BUN 21(H) 8.9 - 20.6 mg/dL 12/19/2019 4:31 AM RETAIL EVENT COORDINATOR [facility] Creatinine 0.97 0.72 - 1.25 mg/dL 12/19/2019 4:31 AM RETAIL EVENT COORDINATOR [facility] eGFR by MDRD >60 >60 mL/min/1.7 3m2 12/19/2019 4:31 AM RETAIL EVENT COORDINATOR [facility] eGFR by MDRD >60 >60 mL/min/1.7 3m2 12/19/2019 4:31 AM RETAIL EVENT COORDINATOR [facility] Blood BLOOD SPECIMEN / Unknown Lab Venipuncture / Unknown 12/19/2019 2:44 AM RETAIL EVENT COORDINATOR 12/19/2019 3:55 AM RETAIL EVENT COORDINATOR Mark Quick MD LAB - CHEMISTRY ORDERABLES Final Result Performing Organization Address City/State/[facility] de Phone Number [facility] [address] [place] [address] from Last 3 Months or Most Recently Relevant to Health Maintenance Insurance [facility] SELF PAY NO INSURANCE Member Subscriber Plan / Payer (Ef fective for All Dates) Name:Selam Bruno Member ID:Not on file Relation to Subscriber:Self Name:Selam Bruno Subscriber ID:Not on file Payer ID:Not on file Group ID:Not on file Type:Self Pay Address: [place], [place] [facility] Advance Directives * Full Code (Latest Code Status on File) Date Activated Date Inactivated Comments 12/19/2019 1:50 AM 12/19/2019 8:41 PM Care Teams Sewage Reticulation Drafting Officer Relationship Specialty Start Date End Date Henrry Multani MD [address] [place] [id number] PCP - General Family Medicine 08/28/19
--- OUTSIDE RECORDS SUMMARY | 2025-10-08 08:31 | XMS_ITS | Patient Health Record ---
Author Organization [facility] Address [address] [place], [place] [id number] Care Team Providers Care Accounting Professional Name Role Phone SeverinojocelynCANDACE banksIL Unavailable [phone] Eleuterio Chou Unavailable Unavailable Reason For Referral No Information Social History Social History Additional Details Category Social Info Options Details Migrated Social History Migrated Social History Smoking Status : Former tobacco user , Alcohol intake : , History of tobacco use : Plan Of Treatment No Information Insurance Providers Payer Name Payer Address Payer Phone Subscriber Number Group Number Insured Name Patient Relationship to Insured Coverage Start Date Coverage End Date [facility] [address] [address] [place] [id number] SELAM QUINONES Self - patient is the insured
== END 2025-10-08 08:19 | disposition home or self-care (01) ==
PROVIDERS: PCP Family Medicine; Visit Provider Orthopaedic Surgery
DX: Z01.810 Encounter for preprocedural cardiovascular examination (principal); E78.5 Hyperlipidemia, unspecified; R94.31 Abnormal electrocardiogram [ECG] [EKG]
CPT/HCPCS: 93005

== ENCOUNTER 2025-10-09 00:39 | Day surgery (SDC) | payer OTHER, SELFPAY ==
[2025-10-07 14:08] VITALS: BMI 39.5
--- NOTE | 2025-10-07 14:31 | PC.NURSE ---
Patient has been doing clindamycin 1.2 % (1 % base)-benzoyl peroxide 5 % topical gel to shoulder as prescribed and is picking up the Hibiclens scrub today 10/07/2025 [facility] has started construction of its new state of the art ER which will open Spring 2026. With this, we anticipate parking may be a challenge for some our surgical patients and families. Parking spaces are limited but are available for all Surgical, obstetrics, and ER patients sharing this lot. If you arrive and find you are having a hard time finding a parking space, please note that we understand the challenges, please drive around the hospital and park near Hospital Entrance 1. When you enter this entrance, you can ask a volunteer to direct or take you back to the surgical waiting area to check in. We appreciate everyone?s understanding of these expected challenges while we build for your future. Report to the Outpatient Waiting Room, entrance under the green pavilion located off [address], at time __0600 on date __10/09/2025 . Planned Procedure Time: _0730 .? Time changes happen often and if your time is changed the preop area will call you the afternoon before. - You and your visitor will be asked to self-screen and do not enter if you have any COVID symptoms. Please call surgeon if you need to reschedule. - A mask is optional within the hospital at this time. Patients may have clear liquids (water, carbonated beverages, clear teas, apple juice) until 3 hours prior to surgery with a maximum of 20 ounces. - No food from midnight until time of surgery and no smoking, or chewing tobacco (or any form of nicotine). No chewing gum, candy or mints. - Infants may have breast milk until 4 hours before surgery, formula 6 hours prior to surgery. - Children will be allowed to drink immediately following surgery.? If applicable, please bring a bottle or sippy cup to assist with drinking. Juice, water, soda, and popsicles are readily available.? For infants on formula, please bring formula the day of surgery.? Pacifiers are allowed. Take only the following medications with a SIP of water on the morning of surgery: _N/A DO NOT STOP ANY OF YOUR OTHER PRESCRIPTION MEDICATIONS PRIOR TO SURGERY EXCEPT THE FOLLOWING Hold all vitamins and supplements for 3 days per anesthesiologist. Medications to discontinue per physician ___N/A Date to take last dose_N/A Please no make-up, nail syriac, hairspray, perfume, deodorant, or body powder the day of surgery.? No jewelry (including any body piercings) or valuables the day of surgery, leave them at home.? Please take a shower or bath the night before, or the morning of, surgery with an antibacterial soap.? Wear comfortable, loose fitting clothing.? Children are encouraged to wear pajamas. - Jewelry must be removed prior to entering the operating room.? Rings and piercings that are not removed may be cut off. - The hospital will not accept responsibility for valuables.? - Please leave all valuables, including medications, at home the day of surgery. If you are going home after surgery, a licensed helper/driver must drive you home.? - NO public transportation without another adult if you receive anesthesia. - We recommend that an adult stay with you for 24 hours following discharge. - We also recommend that you do not drive, make important decision, drink alcoholic beverages, or take any drugs that were not prescribed by your health care provider for at least 24 hours after your discharge time. For Pediatric surgeries, we recommend two adults accompany the child home. Follow any additional instructions given to you from your surgeon. Telephone instructions given to _Earl and asked if any additional questions and then verbalized understanding. Patient advised to call surgeon office or pre surgery nurse liaison [phone] if any additional questions.
[2025-10-09] VITALS (8 sets, daily range): BP systolic 90–147; BP diastolic 57–89; PULSE 69–93; RESP 12–18; TEMP 36.3–36.5; O2SAT 95–99
--- OUTSIDE RECORDS SUMMARY | 2025-10-09 00:50 | XMS_ITS | Clinical Summary ---
Author Organization [facility] Address [facility] [place] [address] Care Team Providers Care Aviation Manager Name Role Phone Unavailable Primary Care Provider [...] of 3 - 19+ 3-dose series) 1990 Pneumococcal Vaccine: 50+ Ye ars (1 of 1 - PCV) 2021 Zoster Vaccines (1 of 2) 2021 COVID-19 Vaccine ( - 2024-2 6 season) 2025 Influenza Adult (#1) 2025 Hepatitis A Vaccines Aged Out No long er eligible based on patient's age to complete this topic Meningococcal B Vaccine Aged Out No l onger eligible based on patient's age to complete this topic Meningococcal Vaccine Aged Out No neetu jordan eligible based on patient's age to complete this topic RSV Immunizations Under 20 Months Aged Out No longer eligible based on patient's age to complete this topic
--- OUTSIDE RECORDS SUMMARY | 2025-10-09 00:50 | XMS_ITS | Clinical Summary ---
Author Organization [facility] [email or web address] Address [address] [place] [address] Care Team Providers Care Company Doctor Name Role Phone Henrry Multani MD Primary Care Provider Source Comments [facility] [email or web address],non-owned Affiliates and Associated Physician Practices is amultiple site organization consisting of ambulatory clinics and hospital sitesin [place], [place], [place] and [place]. This disclosure is being madepursuant to the Care Everywhere program and may not contain all information available regarding this patient. Last updated 18.[facility] [email or web address] Allergies Active Allergy Reactions Criticality Noted Date Comments Amoxicillin Urticaria High 12/09/2018 Penicillins Urticaria High 12/09/2018 Medications * Be aware that medications may not be up to date on this document. Alwaysverify current medications with the patient. Cyanocobalamin (NASCOBAL) 500 MCG/0.1ML [place] into the nose every 7 days Active [...] on file Legal Sex Male 1:07 PM CHIEF GAUGER Gender Identity Not on file Sexual Orientation [...] (CALCIUM TOTAL) AM Draw 12/19/2019 2:44 AM CHIEF GAUGER from Last 3 Months or Most Recently Relevant to Health Maintenance Results * (ABNORMAL) BASIC METABOLIC PANEL (CALCIUM TOTAL) (12/19/2019 2:44 AM CHIEF GAUGER) Glucose 124(H) 70 - 105 mg/dL 12/19/2019 4:31 AM CHIEF GAUGER [facility] Sodium 136 136 - 145 mmol/L 12/19/2019 4:31 AM CHIEF GAUGER [facility] Potassium 4.1 3.5 - 5.1 mmol/L 12/19/2019 4:31 AM CHIEF GAUGER [facility] Chloride 106 98 - 107 mmol/L 12/19/2019 4:31 AM CHIEF GAUGER [facility] CO2 18(L) 23 - 31 mmol/L 12/19/2019 4:31 AM CHIEF GAUGER [facility] Calcium 7.6(L) 8.4 - 10.4 mg/dL 12/19/2019 4:31 AM CHIEF GAUGER [facility] Anion Gap 12 8 - 16 mmol/L 12/19/2019 4:31 AM CHIEF GAUGER [facility] BUN 21(H) 8.9 - 20.6 mg/dL 12/19/2019 4:31 AM CHIEF GAUGER [facility] Creatinine 0.97 0.72 - 1.25 mg/dL 12/19/2019 4:31 AM CHIEF GAUGER [facility] eGFR by MDRD >60 >60 mL/min/1.7 3m2 12/19/2019 4:31 AM CHIEF GAUGER [facility] eGFR by MDRD >60 >60 mL/min/1.7 3m2 12/19/2019 4:31 AM CHIEF GAUGER [facility] Blood BLOOD SPECIMEN / Unknown Lab Venipuncture / Unknown 12/19/2019 2:44 AM CHIEF GAUGER 12/19/2019 3:55 AM CHIEF GAUGER Mark Quick MD LAB - CHEMISTRY ORDERABLES Final Result Performing Organization Address City/State/[facility] de Phone Number [facility] [address] [place] [address] from Last 3 Months or Most Recently Relevant to Health Maintenance Insurance [facility] [place] [address] SELF PAY NO INSURANCE Member Subscriber Plan / Payer (Ef fective for All Dates) Name:Selam Bruno Member ID:Not on file Relation to Subscriber:Self Name:Selam Bruno Subscriber ID:Not on file Payer ID:Not on file Group ID:Not on file Type:Self Pay Address: [place], [place] [facility] Advance Directives * Full Code (Latest Code Status on File) Date Activated Date Inactivated Comments 12/19/2019 1:50 AM 12/19/2019 8:41 PM Care Teams Company Doctor Relationship Specialty Start Date End Date Henrry Multani MD [address] [place] [id number] PCP - General Family Medicine 08/28/19
--- OUTSIDE RECORDS SUMMARY | 2025-10-09 00:50 | XMS_ITS | Patient Health Record ---
Author Organization [facility] Address [address] [place], [place] [address] Care Team Providers Care Relay Motorman Name Role Phone SeverinojocelynCANDACE banksIL Unavailable [phone] Eleuterio Chou Unavailable Unavailable Reason For Referral [...] Insured Coverage Start Date Coverage End Date [facility] [address] [address] [place] [id number] SELAM QUINONES Self - patient is the insured
[2025-10-09] MEDS: LACTATED RINGERS 1,000 ML 30 ML IV CONT (07:00)
[2025-10-09] MEDS: ACETAMINOPHEN 500 MG TABLET 1000 MG PO (07:00)
--- NOTE | 2025-10-09 07:00 | P.PNAN_ITS ---
Anes - Initial Pre Proc Eval Procedure: Operation Date: 10/09/25 07:30 Proposed Procedures p Left Shoulder Mass Excision - Vaughn Owusu MD Date/Time: 10/09/25 07:00 Surgeon: Vaughn Owusu MD Pre Op Diagnosis: Lt shoulder Lipoma Patient Data Age: 54 Gender: M Height: 1.73 m Weight: 127.1 kg Allergies Allergy/AdvReac Type Severity Reaction Status Date / Time Penicillins Allergy Intermediate Unknown Verified 10/07/25 14:00 amoxicillin Allergy Unknown Verified 10/07/25 14:00 Home Medications ?Medication ?Instructions ?Recorded ?Confirmed ?Type cholecalciferol (vitamin D3) 100 5,000 unit PO DAILY 0 11/04/20 10/07/25 History mcg (4,000 unit) capsule folic acid 1 mg tablet 1 mg PO DAILY #30 tabs 11/1110/07/25 Rx vitamin B complex (B 1 tablet PO DAILY 02/20/22 1 12/08/24 History Complex-Vitamin B12 tablet) allopurinol 300 mg tablet See Rx Instructions .Route 0 12/15/24 10/07/25 Rx .COMPLEX #90 tabs atorvastatin 40 mg tablet See Rx Instructions .Route 0 12/15/24 10/07/25 Rx .COMPLEX #90 tabs colchicine 0.6 mg tablet See Rx Instructions .Route 0 06/01/25 10/07/25 Rx .COMPLEX #30 tabs amitriptyline 75 mg tablet See Rx Instructions .Route 09/07/25 10/07/25 Rx .COMPLEX #90 tabs clindamycin 1.2 % (1 % 1 applic topical DAILY #45 g kati 09/28/25 10/07/25 Rx base)-benzoyl peroxide 5 % topical gel chlorhexidine gluconate 4 % 1 applic topical ONCE #237 mL 10/02/25 10/07/25 Rx topical liquid (Hibiclens) multivitamin (Daily Multi-Vitamin 1 tablet PO DAILY 10/07/25 History tablet) omeprazole 20 mg capsule,delayed 20 mg PO DAILY 10/07/25 History release Patient hx anesthesia problems: none Family hx anesthesia problems: none Results Review: All pre-operative results and documents have been reviewed as part of the pre- operative evaluation. [facility] Past Medical History Medical History Right knee pain Hyperlipidemia Low vitamin D level Morbid obesity with body mass index (BMI) of 40.0 to 49.9 Gout Surgical History Surgical History History of bariatric surgery Bariatric surgery status H/O gastric bypass Family History Family History Mother Family history of diabetes mellitus in first degree relative Family history of lung disease Family history of heart disease in male family member before age 55 Father Family history of lung disease Family history of heart disease in male family member before age 55 Other Diabetes mellitus Family history of allergic disorder Social History Social History Years smoked: 16 Smoking status: Current every day smoker Tobacco type: e-cigarettes/vaping Alcohol intake: current Drinks per week: 14 Alcohol use details: 7-14 vodka soda Living arrangements: with family Spiritual care concerns: No Anes - Eval Final PreProcedure Day of Procedure 10/09/25 07:00 Patient weight: morbidly obese Heart: regular rate and rhythm Lungs: clear to auscultation Airway: Mallampati scale class II Neurological: alert and oriented Last oral intake: >/= 8 hours ASA classification: III Emergent: no Anesthetic plan: proceed Anesthesia type and monitoring: general ETT and standard monitoring Results Review: All pre-operative results and documents have been reviewed as part of the pre- operative evaluation. Informed Consent: The patient's anesthetic plan and its attendant risks and benefits were discussed with the patient/family/POA. Questions were solicited and answers provided to the satisfaction of the patient/family/POA.
--- NOTE | 2025-10-09 07:19 | WPDHPUPDATE1 ---
History and Physical Update Update Date/Time: 10/09/25 07:19 History and Physical has been reviewed, including an updated exam of the patient. There are NO changes in the patient's condition. Risks, benefits, and alternatives have been discussed and questions answered. Patient agrees to proceed with procedure.
[2025-10-09] MEDS: ceFAZolin 3 GM/D5W 100 ML 100 ML IVPB (07:28)
--- NOTE | 2025-10-09 08:02 | S_PTH ---
PATIENT: Farzad Bruno [place] [facility] [id number] AGE/SX: 54/M ROOM: RE10/09/[address]: Vaughn Owusu MD : 1970 BED: DIS: 10/09/2025 SPEC #: [id number] RECD: 10/09/25 09:17 STATUS: VANESSA REQ #: [id number] LINDA: 10/09/25 08:[address]: Vaughn Owusu DEPT: [facility] Surgical RECD BY: Ayana Roper ENTERED: 10/09/25 09:17 SP TYPE: Surgical OTHR DR: Kenneth Mancilla DO Tissues: A - Mass Procedures: Hematoxylin and Eosin Stain Gross and Microscopic Level 3
[2025-10-09] MEDS: BUPivacaine HCL 0.5% 10 ML AMP 30 ML INFILTRATE (08:07)
--- NOTE | 2025-10-09 08:23 | W.PM.PROC2 ---
Procedure Note - Detailed Date of Procedure 10/09/25 Pre-op Diagnosis Lt shoulder Lipoma Post-op Diagnosis Same (PATHOLOGY PENDING) Procedure Performed EXCISION OF MASS LEFT SHOULDER Surgeon Vaughn Owusu MD Anesthesia General Description of Procedure THE PATIENT WAS TAKEN TO THE OPERATING ROOM AND PLACED UNDER GENERAL ANESTHESIA. THE LEFT UPPER EXTREMITY WAS PREPPED AND DRAPED. AN INCISION WAS MADE THROUGH THE SKIN AND DISSECTION CONTINUED THROUGH THE SUBCUTANEOUS LAYER TO THE LEVEL OF THE FASCIA. THE MASS WAS IDENTIFIED AND RESECTED IN ITS ENTIRETY. THE MASS WAS SENT FOR PATHOLOGY. BLEEDERS WERE CAUTERIZED. THE WOUND WAS IRRIGATED. THE WOUND WAS APPROXIMATED IN LAYERS WITH 3-0 VICRYL AND 3-0 QUIL. DERMABOND WAS PLACED. STERILE DRESSING WAS PLACED. THE PATIENT WAS EXTUBATED. Estimated Blood Loss 5 Pathology Yes Condition Stable Disposition PACU
== END 2025-10-09 10:05 | disposition home or self-care (01) ==
PROVIDERS: PCP Family Medicine; Visit Provider Orthopaedic Surgery
PROC: (CPT 23071; principal; 2025-10-09 07:30)
DX: D17.22 Benign lipomatous neoplasm of skin and subcutaneous tissue of left arm (principal); F17.290 Nicotine dependence, other tobacco product, uncomplicated; E66.01 Morbid (severe) obesity due to excess calories; Z68.41 Body mass index [BMI] 40.0-44.9, adult
CPT/HCPCS: 23071; 88304; A9270; J0690; J2250; J2405; J2704; J3010; J7120